=== PATIENT | male | born 1965 | race Caucasian/White ===

== ENCOUNTER → 2020-03-19 09:27 | Outpatient (BNVA) | payer OTHER, SELFPAY | PROVIDERS: PCP Internal Medicine; Visit Provider Physician Assistant | DX: E66.9 Obesity, unspecified (principal); Z68.43 Body mass index [BMI] 50.0-59.9, adult | CPT/HCPCS: Q3014 ==

== ENCOUNTER → 2020-03-26 10:49 | Outpatient (BNVA) | payer OTHER, SELFPAY | PROVIDERS: Visit Provider Physician Assistant | DX: Z76.89 Persons encountering health services in other specified circumstances (principal) ==

== ENCOUNTER → 2020-04-01 08:33 | Outpatient (BNVA) | payer OTHER, SELFPAY | PROVIDERS: PCP Internal Medicine; Visit Provider Dietitian, Registered | DX: Z76.89 Persons encountering health services in other specified circumstances (principal) ==

== ENCOUNTER → 2020-04-05 07:52 | Outpatient (BNVA) | payer OTHER, SELFPAY | PROVIDERS: PCP Internal Medicine Critical Care Medicine; Visit Provider Dietitian, Registered | DX: Z76.89 Persons encountering health services in other specified circumstances (principal) ==

== ENCOUNTER → 2020-04-11 09:48 | Outpatient (BNVA) | payer OTHER, SELFPAY | PROVIDERS: PCP Internal Medicine; Referring Provider Internal Medicine; Visit Provider Surgery | DX: Z76.89 Persons encountering health services in other specified circumstances (principal) ==

== ENCOUNTER → 2020-05-03 08:02 | Outpatient (BNVA) | payer OTHER, SELFPAY | PROVIDERS: PCP Obstetrics & Gynecology; Referring Provider Obstetrics & Gynecology; Visit Provider Physician Assistant | DX: Z76.89 Persons encountering health services in other specified circumstances (principal) ==

== ENCOUNTER → 2020-05-08 08:33 | Outpatient (BNVA) | payer OTHER, SELFPAY | PROVIDERS: PCP Obstetrics & Gynecology; Visit Provider Dietitian, Registered | DX: Z76.89 Persons encountering health services in other specified circumstances (principal) ==

== ENCOUNTER → 2020-10-01 15:45 | Outpatient (BNVA) | payer OTHER, SELFPAY | PROVIDERS: PCP Obstetrics & Gynecology; Visit Provider Physician Assistant ==

== ENCOUNTER → 2020-10-10 08:19 | Outpatient (BNVA) | payer OTHER, SELFPAY | PROVIDERS: PCP Internal Medicine; Visit Provider Dietitian, Registered | DX: E66.01 Morbid (severe) obesity due to excess calories (principal); Z68.43 Body mass index [BMI] 50.0-59.9, adult | CPT/HCPCS: 97803 ==

== ENCOUNTER → 2020-11-07 08:22 | Outpatient (BNVA) | payer OTHER, SELFPAY | PROVIDERS: PCP Internal Medicine; Visit Provider Dietitian, Registered ==

== ENCOUNTER → 2020-11-14 08:12 | Outpatient (BNVA) | payer OTHER, SELFPAY | PROVIDERS: PCP Internal Medicine; Visit Provider Dietitian, Registered | DX: E66.01 Morbid (severe) obesity due to excess calories (principal) | CPT/HCPCS: 97803 ==

== ENCOUNTER 2021-06-30 22:22 | Emergency (ER) | payer OTHER, SELFPAY ==
[2021-06-30 23:16] VITALS: BP 136/83; PULSE 98; RESP 20; TEMP 36.1; O2SAT 96; BMI 43.0
[2021-07-01 01:37] VITALS: BP 130/78; PULSE 99; RESP 18; O2SAT 96
[2021-07-01 02:10] LABS: Appearance Urine HAZY; Color Urine DK YELLOW; Glucose Urine UA NEG (NEG); Leukocyte Esterase Urine 1+ (NEG); Nitrite Urine POS (NEG); Specific Gravity - Urine >= 1.030 (1.005-1.025); UACC Culture Trigger YES; Urine Blood 3+ (NEG); Urine Ketones NEG (NEG); Urine Protein NEG (NEG-TRACE)
[2021-07-01 02:16] LABS: Bacteria Urine 4+ /LPF; Mucus Urine 2+ /LPF; Squamous Epithelial Cell Urine 1+ /LPF; WBC Clumps Urine NOTED; WBC Urine 50-75 /HPF (0-4)
--- NOTE | 2021-07-01 03:37 | ED.GENADULT ---
HPI - General Adult General Chief complaint: General Medical Stated complaint: burning on urination Time Seen by Provider: 06/30/21 22:38 History of Present Illness HPI narrative: Patient is a 56-year-old male presents today with having pain on urination. Feels that he is constantly going to the bathroom. Symptoms started approximately 18:00 tonight. No cough no congestion or upper respiratory symptoms. No history UTIs in the past. No nausea no vomiting. Tolerating fluids. No flank pain. Patient is from home. Sexually active 1 partner. He is . No penile discharge noted. No abdominal pain noted. Related Data Home Medications Medication Instructions Recorded Confirmed albuterol sulfate 90 mcg/actuation INHALATION 03/19/20 10/01/20 aerosol inhaler fluticasone propionate 110 2 puff PO BID 03/19/20 10/01/20 mcg/actuation HFA aerosol inhaler fluticasone propionate 50 1 spray INTRANASAL DAILY 03/19/20 10/01/20 mcg/actuation nasal spray,suspension hydrochlorothiazide 25 mg tablet 25 mg PO DAILY 03/19/20 10/01/20 lisinopril 40 mg tablet 40 mg PO DAILY 03/19/20 10/01/20 multivitamin with minerals-folic tab PO 03/19/20 10/01/20 acid 0.4 mg tablet (Adult One Daily Multivitamin) cetirizine 10 mg capsule (All Day 10 mg PO DAILY 04/11/20 10/01/20 Allergy (cetirizine)) amlodipine 5 mg tablet 10 mg PO DAILY tab 10/01/20 10/01/20 Previous Rx's Medication Instructions Recorded sulfamethoxazole 800 1 tab PO BID 10 Days #20 tab 07/01/21 mg-trimethoprim 160 mg tablet (Bactrim DS) Allergies Allergy/AdvReac Type Severity Reaction Status Date / Time Pt states no known allergy to Allergy Unknown none Uncoded 10/01/20 16:01 Review of Systems Review of Systems: No abdominal pain positive increasing frequency pain on urination Yes all other systems are reviewed and are negative PMFSH Past Medical History Medical History Arthritis of right hip Asthma BMI 50.0-59.9, adult Hypertension Morbid obesity Morbid obesity with BMI of 50.0-59.9, adult Super obesity Surgical History Status post right hip replacement Family History Family History Father No problems noted. Brother No problems noted. Brother No problems noted. Brother No problems noted. Brother No problems noted. Sister No problems noted. Sister No problems noted. Mother No problems noted. Social History Social History Alcohol intake: never Advance Directives: No Physical Exam Vital Signs: Vital Signs: Last Vital Signs Temp 97 F 06/30/21 23:16 Pulse 99 07/01/21 04:00 Resp 16 07/01/21 04:00 BP 134/83 07/01/21 04:00 Pulse Ox 98 07/01/21 04:00 BMI result Body Mass Index 43.0 Appearance: Alert. Oriented X3. No acute distress. Eyes: Pupils equal, round and reactive to light. ENT: Pharynx normal. Neck: Normal inspection. Neck supple. No lymph nodes noted. No crepitus CVS: Normal heart rate and rhythm. Pulses normal. Normal S1 and S2 Respiratory: No respiratory distress. Breath sounds normal. No Wheezing. No rales Abdomen: Soft and nontender. No rigidity. No distention. good BS x4 Skin: Skin warm and dry. Normal skin color. Normal skin turgor. Extremities: No lower extremity edema. Neurovascular intact to all extremities. No Lacerations. No Rash Neuro: Oriented X 3. No motor deficit. No sensory deficit. Moving all extermities. No slurred speech Medical Decision Making MDM Narrative Medical decision making narrative: Patient elevated white count of 19. Urine grossly infected electrolytes otherwise unremarkable. Lactate was normal. No evidence of severe sepsis. Will start patient on a dose of Rocephin here in emergency department. Postvoid residual was less than 100. Patient is to be discharged home on antibiotics. In stable condition. In addition patient's sugar was greater than 100. Will need close follow-up for possible diabetes. Patient is currently in stable condition. Lab Data Result diagrams: 07/01/21 04:09 07/01/21 04:09 Labs: Lab Results 01/18/22 01/18/22 01/18/22 Range/Units 02:03 04:09 04:09 WBC 19.0 H (4.8-10.8) X10*3/uL RBC 4.66 (4.60-5.80) X10*6/uL Hgb 14.4 (14.0-18.0) g/dl Hct 42.8 (42.0-52.0) % MCV 91.8 (80.0-98.0) fL MCH 30.9 (27.0-33.0) pg MCHC 33.6 (31.0-36.0) g/dl RDW 12.4 (11.0-16.0) % Plt Count 295 (160-400) X10*3/uL MPV 9.8 (9.4-12.4) fL Immature Gran % (Auto) 0.3 (0.0-0.4) % Neut % (Auto) 80.6 H (45-73) % Lymph % (Auto) 11.4 L (20-40) % [place] % (Auto) 7.2 (2-11) % Eos % (Auto) 0.2 (0-4) % Baso % (Auto) 0.3 (0-2) % Lymph # (Auto) 2.2 (1.2-4.9) X10*3/uL [place] # (Auto) 1.4 H (0.1-1.2) X10*3/uL Eos # (Auto) 0.0 (0.0-0.4) X10*3/uL Baso # (Auto) 0.1 (0.0-0.2) X10*3/uL Abs Immat Gran (auto) 0.05 H (0.00-0.03) X10*3/uL Absolute Neuts (auto) 15.3 H (2.0-8.3) x10*3/uL Absolute Nucleated RBC 0.000 (0.0-0.012) X10*3/uL Nucleated RBC % (auto) 0.0 (0.0-0.2) /100WBC Sodium 135 (135-145) mmol/L Potassium 4.1 (3.3-5.1) mmol/L Chloride 103 (96-108) mmol/L Carbon Dioxide 22 (22-29) mmol/L Anion Gap 14 (12-20) BUN 22 H (9-16) mg/dL Creatinine 0.84 (0.5-1.4) mg/dL Estim Creat Clear Calc 127.3 Estimated GFR > 60 Random Glucose 190 H (60-115) mg/dL Lactic Acid (0.5-2.0) mmol/L Calcium 9.2 (8.4-10.2) mg/dL Urine Color DK YELLOW Urine Appearance HAZY Urine pH 6.0 (5.0-8.0) Ur Specific [place] >= 1.030 H (1.005-1.025) Urine Protein NEG (NEG-TRACE) MG/DL Urine Glucose (UA) NEG (NEG) MG/DL Urine Ketones NEG (NEG) MG/DL Urine Blood 3+ H (NEG) Urine Nitrite POS H (NEG) Ur Leukocyte Esterase 1+ H (NEG) Urine RBC 1-4 (0) /HPF Urine WBC 50-75 H (0-4) /HPF Urine WBC Clumps NOTED Ur Squamous Epith Cells 1+ /LPF Urine Bacteria 4+ /LPF Urine Mucus 2+ /LPF COVID-19 (LUIS) (Negative) COVID-19 Clin Com 07/01/21 07/01/21 Range/Units 05:31 05:31 WBC (4.8-10.8) X10*3/uL RBC (4.60-5.80) X10*6/uL Hgb (14.0-18.0) g/dl Hct (42.0-52.0) % MCV (80.0-98.0) fL MCH (27.0-33.0) pg MCHC (31.0-36.0) g/dl RDW (11.0-16.0) % Plt Count (160-400) X10*3/uL MPV (9.4-12.4) fL Immature Gran % (Auto) (0.0-0.4) % Neut % (Auto) (45-73) % Lymph % (Auto) (20-40) % [place] % (Auto) (2-11) % Eos % (Auto) (0-4) % Baso % (Auto) (0-2) % Lymph # (Auto) (1.2-4.9) X10*3/uL [place] # (Auto) (0.1-1.2) X10*3/uL Eos # (Auto) (0.0-0.4) X10*3/uL Baso # (Auto) (0.0-0.2) X10*3/uL Abs Immat Gran (auto) (0.00-0.03) X10*3/uL Absolute Neuts (auto) (2.0-8.3) x10*3/uL Absolute Nucleated RBC (0.0-0.012) X10*3/uL Nucleated RBC % (auto) (0.0-0.2) /100WBC Sodium (135-145) mmol/L Potassium (3.3-5.1) mmol/L Chloride (96-108) mmol/L Carbon Dioxide (22-29) mmol/L Anion Gap (12-20) BUN (9-16) mg/dL Creatinine (0.5-1.4) mg/dL Estim Creat Clear Calc Estimated GFR Random Glucose (60-115) mg/dL Lactic Acid 1.4 (0.5-2.0) mmol/L Calcium (8.4-10.2) mg/dL Urine Color Urine Appearance Urine pH (5.0-8.0) Ur Specific [place] (1.005-1.025) Urine Protein (NEG-TRACE) MG/DL Urine Glucose (UA) (NEG) MG/DL Urine Ketones (NEG) MG/DL Urine Blood (NEG) Urine Nitrite (NEG) Ur Leukocyte Esterase (NEG) Urine RBC (0) /HPF Urine WBC (0-4) /HPF Urine WBC Clumps Ur Squamous Epith Cells /LPF Urine Bacteria /LPF Urine Mucus /LPF COVID-19 (LUIS) Negative (Negative) COVID-19 Clin Com See Note Discharge Plan Discharge Clinical Impression: Acute UTI Patient Disposition: Home, Self-Care Instructions: Urinary Tract Infection in Men (ED), Diabetes and Nutrition (ED) Prescriptions: New sulfamethoxazole-trimethoprim [Bactrim DS] 800-160 mg tablet 1 tab PO BID 10 Days Qty: 20 RF: 0 No Action lisinopril 40 mg tablet 40 mg PO DAILY RF: 0 hydrochlorothiazide 25 mg tablet 25 mg PO DAILY RF: 0 fluticasone propionate 50 mcg/actuation spray,suspension 1 spray intranasal DAILY RF: 0 Flovent HFA 110 mcg/actuation HFA aerosol inhaler 2 puff PO BID RF: 0 albuterol sulfate 90 mcg/actuation HFA aerosol inhaler inhalation RF: 0 Adult One Daily Multivitamin 0.4 mg tablet PO RF: 0 amlodipine 5 mg tablet 10 mg PO DAILY RF: 0 All Day Allergy (cetirizine) 10 mg capsule 10 mg PO DAILY RF: 0 Referrals: Shahid Shen MD [Primary Care Provider] - 2 days
[2021-07-01 04:00] VITALS: BP 134/83; PULSE 99; RESP 16; O2SAT 98
[2021-07-01 04:21] LABS: MANUAL DIFF FLAG NO
[2021-07-01 04:22] LABS: Basophils Absolute Auto 0.1 X10*3/uL (0.0-0.2); Basophils Percent Auto 0.3 % (0-2); Eosinophils Percent Auto 0.2 % (0-4); Hematocrit 42.8 % (42.0-52.0); Hemoglobin 14.4 g/dl (14.0-18.0); Imm Gran Abs Auto 0.05 X10*3/uL (0.00-0.03); Imm Gran Pct Auto 0.3 % (0.0-0.4); Lymphocytes Absolute Auto 2.2 X10*3/uL (1.2-4.9); Lymphocytes Percent Auto 11.4 % (20-40); Mean Corpuscular HGB Conc 33.6 g/dl (31.0-36.0); Mean Corpuscular Hemoglobin 30.9 pg (27.0-33.0); Mean Corpuscular Volume 91.8 fL (80.0-98.0); Mean Platelet Volume 9.8 fL (9.4-12.4); Monocytes Absolute Auto 1.4 X10*3/uL (0.1-1.2); Monocytes Percent Auto 7.2 % (2-11); Neutrophils Absolute Auto 15.3 x10*3/uL (2.0-8.3); Neutrophils Percent Auto 80.6 % (45-73); Platelet Count 295 X10*3/uL (160-400); Red Blood Count 4.66 X10*6/uL (4.60-5.80); Red Cell Distribution Width 12.4 % (11.0-16.0)
[2021-07-01 04:42] LABS: Anion Gap 14 (12-20); Blood Urea Nitrogen 22 mg/dL (9-16); Calcium 9.2 mg/dL (8.4-10.2); Carbon Dioxide 22 mmol/L (22-29); Chloride 103 mmol/L (96-108); Creatinine Clr Calc Pharmacy 127.3; Estimated Glomerular Filt Rate > 60; Glucose Random 190 mg/dL (60-115); Potassium 4.1 mmol/L (3.3-5.1); Sodium 135 mmol/L (135-145)
[2021-07-01 05:48] LABS: Lactic Acid 1.4 mmol/L (0.5-2.0)
[2021-07-01 05:51] LABS: COVID-19 Test Negative (Negative); IDNOW Serial# 9DD0AD1C
[2021-07-01] MEDS: cefTRIAXone sodium 1 GM in 0.9 % Sodium Chloride 50 ML IV (05:52)
[2021-07-01 05:56] LABS: CT PCR NOT DETECTED (Not Detect.); NG PCR NOT DETECTED (Not Detect.)
[2021-07-01 05:57] VITALS: BP 123/68; PULSE 98; RESP 16; O2SAT 95
== END 2021-07-01 06:11 | disposition home or self-care (01) ==
PROVIDERS: Nurse Practitioner Family; Emergency Provider Emergency Medicine Emergency Medical Services; PCP Internal Medicine
DX: N39.0 Urinary tract infection, site not specified (principal); Z20.822 Contact with and (suspected) exposure to COVID-19; I10 Essential (primary) hypertension; E66.01 Morbid (severe) obesity due to excess calories
CPT/HCPCS: 36415; 51798; 80048; 81001; 83605; 85025; 87040; 87086; 87088; 87186; 87491; 87591; 87635; 96372; 99284; J0696

== ENCOUNTER 2023-07-14 16:50 | Inpatient (IN) | payer OTHER, SELFPAY ==
--- NOTE | ~2023-07-14 | CT_ITS ---
EXAMINATION: CT ABDOMEN AND PELVIS WITHOUT CONTRAST CLINICAL INFORMATION: hematuria, abd pain. COMPARISON: No pertinent prior studies are available for comparison. TECHNIQUE: Multidetector volumetric imaging was performed from the superior aspect of the liver through the pubic symphysis without contrast per renal stone protocol. Sagittal and coronal reformatted images were obtained on the technologist workstation. This CT examination was performed using dose optimization techniques as appropriate, variously including the following: *Automated exposure control *Adjustment of mA and/or kV according to patient size (this includes techniques or standardized protocols for targeted exams where dose is matched to indication/reason for exam; i.e. extremities or head) *Use of iterative reconstruction technique DLP: 1220 mGy-cm. FINDINGS: LUNG BASES: Unremarkable LIVER, GALLBLADDER, BILIARY TREE: The non-contrast liver is normal in size, shape, and attenuation. No focal hepatic lesion or biliary ductal dilatation is present. The gallbladder is unremarkable with no evidence of radiopaque gallstones, gallbladder wall thickening, or obvious pericholecystic inflammatory changes. PANCREAS: Unremarkable. SPLEEN: Unremarkable. ADRENAL GLANDS: Unremarkable. KIDNEYS AND URETERS: The kidneys are normal in size, shape, and attenuation. No hydronephrosis, hydroureter, or perinephric stranding. No calculi. BLADDER: Decompressed but otherwise unremarkable GASTROINTESTINAL TRACT: Distal colon mostly decompressed. I do not appreciate any colonic wall thickening or pericolonic inflammatory change. Normal-appearing appendix in the right lower quadrant. Visualized small bowel unremarkable ABDOMINAL WALL: Tiny fat-containing periumbilical hernia LYMPHOVASCULAR STRUCTURES: Mild vascular calcification within the aorta iliac system. PELVIC VISCERA: Unremarkable. OSSEUS STRUCTURES: Patient is status post right total hip arthroplasty with associated atrophy of the right psoas muscle CT/CT abdomen pelvis wo IV con IMPRESSION: I do not appreciate any acute intra-abdominal process. No renal or ureteric calculi. No obstructive changes to the kidneys.
[2023-07-14 17:31] VITALS: BP 142/85; PULSE 110; RESP 18; TEMP 38.4; O2SAT 96; BMI 50.9
--- NOTE | 2023-07-14 17:37 | ED_ITS ---
HPI - Male Genitourinary General Chief complaint: Urogenital-Male Stated complaint: unable to urinate Time Seen by Provider: 07/14/23 18:30 Source: patient and family Mode of arrival: ambulatory Limitations: no limitations History of Present Illness HPI Narrative: 58-year-old male other past medical history of hypertension and kidney stones in the past presents to the emergency department, with family, for concerns for dysuria, increased urinary frequency and hesitancy starting this morning. He reports that he had an elevated temperature here in the emergency department of 101.5 and was given Tylenol. He denies any current abdominal pain, testicular discomfort, nausea, vomiting, noted hematuria, or foul-smelling urine Pertinent positives and negatives discussed in HPI Related Data Home Medications Medication Instructions Recorded Confirmed fluticasone propionate 50 1 spray intranasal DAILY 03/19/20 07/14/23 mcg/actuation nasal spray,suspension lisinopril 40 mg tablet 40 mg PO BEDTIME 03/19/20 07/14/23 amlodipine 5 mg tablet 10 mg PO BEDTIME 10/01/20 07/14/23 budesonide 90 mcg/actuation breath 2 inh inhalation BID PRN Shortness 07/14/23 07/14/23 activated powder inhaler Of Breath Or Wheezing (Pulmicort Flexhaler) multivitamin-ferrous 1 tab PO DAILY 07/14/23 07/14/23 fumarate-folic acid 18 mg-400 mcg tablet spironolactone 25 1 tab PO DAILY 07/14/23 07/14/23 mg-hydrochlorothiazide 25 mg tablet Allergies Allergy/AdvReac Type Severity Reaction Status Date / Time Pt states no known allergy to Allergy Unknown none Uncoded 07/15/23 02:23 Review of Systems 2 Review of Systems: Yes all other systems are reviewed and are negative [facility] Past Medical History Medical History BMI 50.0-59.9, adult Morbid obesity Morbid obesity with BMI of 50.0-59.9, adult Arthritis of right hip Asthma Hypertension Super obesity Surgical History Status post right hip replacement Family History Family History Father No problems noted. Brother No problems noted. Brother No problems noted. Brother No problems noted. Brother No problems noted. Sister No problems noted. Sister No problems noted. Mother No problems noted. Social History Social History Household Members: Spouse Housing: Apartment Do you presently have visiting nurse or other home services: No Alcohol intake: never Patient Tobacco Use Status: Never used Tobacco e-Cigarette/Vaping Use: Never Used service: No Physical Exam 2 Vital Signs: Vital Signs: Last Vital Signs Temp 99.5 F 07/15/23 08:24 Pulse 114 H 07/15/23 07:16 Resp 18 07/15/23 07:16 BP 155/88 H 07/15/23 07:16 Pulse Ox 98 07/15/23 07:16 O2 Del Method Room Air 07/15/23 07:16 BMI result Body Mass Index 50.9 Nursing notes and vital signs reviewed. GENERAL APPEARANCE: A&0 x 4, generally well appearing, no acute distress HENMT: Normal to inspection, atraumatic, face symmetrical. Normal external ears, nose, and oropharynx clear. EYE: PERRLA, EOM intact, structures appear normal NECK: Supple without lymphadenopathy. No stiffness or restricted ROM. CHEST: Normal to inspection HEART: Normal rate and regular rhythm, normal S1/S2, no M/R/G LUNGS: LS CTA, moving air well. Able to speak in complete sentences. No crackles, wheezes, or rhonchi auscultated ABDOMEN: Soft, nontender, nondistended. Normal bowel sounds noted BACK: No CVAT, no obvious deformity EXTREMITIES: Moving all extremities without difficulty. No cyanosis, clubbing, or edema. Normal capillary refill. NEUROLOGICAL: Alert and oriented, moving all 4 extremities with equal strength. CN not formally tested but appearing grossly intact. Observed to ambulate with normal gait. Cognition normal SKIN: Warm and dry without any lesions, rash, or visible sores PSYCH: Cooperative, normal affect, normal thought process Course Course Course Narrative: RME: 58 yold male presents to the ED for dysuria, increase urinary frequency, suprapubic pain since today. Patient denies any abdominal pain, flank pain, nausea, vomitting, penile discharge, penile lesions, or trauma. labs ordered. Medications Administered Generic Name Dose Route Start Last Admin Trade Name Freq PRN Reason Stop Dose Admin Acetaminophen 650 mg 07/14/23 22:20 07/15/23 07:26 Acetaminophen 325 Mg Tablet PO 650 mg Q6H PRN Administration Pain, Mild (Pain Scale 1-3) Amlodipine Besylate 10 mg 07/14/23 22:30 07/14/23 22:36 Amlodipine Besylate 10 Mg Tablet PO Not Given BEDTIME [facility] Protocol Enoxaparin Sodium 40 mg 07/14/23 22:30 07/14/23 22:36 Enoxaparin Sodium 40 Mg/0.4 Ml Syringe SUBCUT 40 mg Q24H DINORA Administration Fluticasone Propionate 1 spray 07/15/23 09:00 07/15/23 11:32 Fluticasone Propionate Nasal 16 Gm Mccleary NOSTRIL-B Not Given DAILY DINORA Hydrochlorothiazide 25 mg 07/15/23 09:00 07/15/23 08:16 Hydrochlorothiazide 25 Mg Tablet PO 25 mg DAILY DINORA Administration Lisinopril 40 mg 07/14/23 22:30 07/14/23 22:36 Lisinopril 40 Mg Tablet PO Not Given BEDTIME [facility] Protocol Multivitamins/Vitamin C 1 tab 07/15/23 09:00 07/15/23 08:15 Multivitamin Tablet PO 1 tab DAILY DINORA Administration Sodium Chloride 3 ml 07/15/23 00:00 07/15/23 07:28 0.9 % Sodium Chloride Flush 3 Ml Syringe IVFLUSH 3 ml QSHIFT DINORA Administration Spironolactone 25 mg 07/15/23 09:00 07/15/23 08:16 Spironolactone 25 Mg Tablet PO 25 mg DAILY DINORA Administration Discontinued Medications Generic Name Dose Route Start Last Admin Trade Name Donte PRN Reason Stop Dose Admin Acetaminophen 975 mg 07/14/23 17:39 07/14/23 18:50 Acetaminophen 325 Mg Tablet PO 07/14/23 17:40 975 mg ONCE ONE Administration Sodium Chloride 1,000 mls @ 999 mls/hr 07/14/23 19:30 07/14/23 22:30 Ns IV 07/14/23 20:30 Infused .Q1H1M DINORA Infusion Ceftriaxone Sodium 1 gm/ 50 mls @ 100 mls/hr 07/14/23 20:30 07/14/23 21:40 Sodium Chloride IV 07/14/23 20:59 Infused ONCE ONE Infusion Medical Decision Making Medical Decision Making [facility] Narrative: Old records reviewed for previous imaging, lab studies, ECGs, and notes and additional HPI obtained from patient's family. Patient was assessed the emergency department. Patient noted to be febrile at 1:01 a.m. 0.2 and Tylenol given in triage with reduction of temperature to 99.4. Patient is A&O x4, LS CTA, [place] x4 with good strength. Nasal serology was negative for COVID or flu. Significant leukocytosis noted with WBCs 23.2 and BUN mildly elevated at 21. Lactic acid level 1.1. A moderate amount occult blood, RBCs, and WBCs noted in patient's urine and ceftriaxone given in addition to a 1 L IV fluid bolus. CT scan was completed which showed no evidence of nephrolithiasis or hydronephrosis per my interpretation. Radiology report notes a tiny, fat containing periumbilical hernia, mild vascular calcification within the aortoiliac system, and now acute intra-abdominal processes noted. Patient's symptoms are consistent with urinary tract infection and patient rules in for septic criteria as he had a fever of 101.2 on arrival and is tachycardic. Blood cultures were drawn. Admission was discussed with patient based on patient's HPI, PE, and diagnostics and patient is in agreement with admission. Case was discussed with admitting provider, Dr Rouse, with plan for inpatient admission for further management of urosepsis. Differential Diagnosis Differential Diagnoses: The differential diagnosis associated with the presentation includes But not limited to UTI, cystitis, pyelonephritis, nephrolithiasis, sepsis, malignancy Lab Data 07/15/23 06:03 07/15/23 06:03 Labs: Lab Results 07/14/23 07/14/23 07/14/23 Range/Units 17:40 17:43 17:44 WBC 23.2 H (4.8-10.8) X10*3/uL RBC 4.91 (4.60-5.80) X10*6/uL Hgb 15.4 (14.0-18.0) g/dl Hct 44.2 (42.0-52.0) % MCV 90.0 (80.0-98.0) fL MCH 31.4 (27.0-33.0) pg MCHC 34.8 (31.0-36.0) g/dl RDW 11.9 (11.0-16.0) % Plt Count 322 (160-400) X10*3/uL MPV 9.4 (9.4-12.4) fL Immature Gran % (Auto) 0.4 (0.0-0.4) % Neut % (Auto) 84.1 H (45-73) % Lymph % (Auto) 9.0 L (20-40) % [place] % (Auto) 6.1 (2-11) % Eos % (Auto) 0.1 (0-4) % Baso % (Auto) 0.3 (0-2) % Lymph # (Auto) 2.1 (1.2-4.9) X10*3/uL [place] # (Auto) 1.4 H (0.1-1.2) X10*3/uL Eos # (Auto) 0.0 (0.0-0.4) X10*3/uL Baso # (Auto) 0.1 (0.0-0.2) X10*3/uL Abs Immat Gran (auto) 0.09 H (0.00-0.03) X10*3/uL Absolute Neuts (auto) 19.6 H (2.0-8.3) x10*3/uL Absolute Nucleated RBC 0.000 (0.0-0.012) X10*3/uL Nucleated RBC % (auto) 0.0 (0.0-0.2) /100WBC Sodium 138 (135-145) mmol/L Potassium 4.3 (3.3-5.1) mmol/L Chloride 102 (96-108) mmol/L Carbon Dioxide 26 (22-29) mmol/L Anion Gap 14 (12-20) BUN 21 H (9-16) mg/dL Creatinine 1.07 (0.5-1.4) mg/dL Estim Creat Clear Calc 107.5 Estimated GFR > 60 Random Glucose 144 H (60-115) mg/dL Lactic Acid 1.1 (0.5-2.0) mmol/L Calcium 9.6 (8.4-10.2) mg/dL Total Bilirubin 0.6 (0.0-1.0) mg/dL AST 33 (5-37) U/L ALT 32 (0-40) U/L Alkaline Phosphatase 58 (39-117) U/L Total Protein 7.6 (6.5-8.0) g/dL Albumin 4.2 (3.5-5.0) g/dL Lipase 28 (8-78) U/L Urine Color Yellow Urine Appearance Cloudy Urine pH 6.5 (5.0-9.0) Ur Specific [place] 1.025 (1.005-1.025) Urine Protein 30 (1+) H (Neg-Trace) mg/dL Urine Glucose (UA) Negative (Negative) mg/dL Urine Ketones Negative (Negative) mg/dL Urine Blood Moderate (2+) H (Negative) Urine Nitrite Negative (Negative) Ur Leukocyte Esterase Moderate (2+) H (Negative) Urine RBC >20 H (0-2) /HPF Urine WBC >50 H (0-5) /HPF Ur Squamous Epith Cells 0-2 (0-2) /HPF Urine Bacteria Trace (None Seen) Hyaline Casts 0-2 (0-2) /LPF COVID-19 (LUIS) Negative (Negative) COVID-19 Clin Com See Note Influenza Type A (JAIME) Negative (Negative) Influenza Type B (JAIME) Negative (Negative) Influenza A & B Note See Note Discharge Plan Discharge Clinical Impression: Urinary tract infection Patient Disposition: Admitted As Inpatient Interventions: Admission Worksheet (ED) Last Done: 07/15/23 01:32 Discharge Date/Time: 07/15/23 02:27
[2023-07-14 17:51] LABS: MANUAL DIFF FLAG NO
[2023-07-14 17:53] LABS: Basophils Absolute Auto 0.1 X10*3/uL (0.0-0.2); Basophils Percent Auto 0.3 % (0-2); Eosinophils Percent Auto 0.1 % (0-4); Hematocrit 44.2 % (42.0-52.0); Hemoglobin 15.4 g/dl (14.0-18.0); Imm Gran Abs Auto 0.09 X10*3/uL (0.00-0.03); Imm Gran Pct Auto 0.4 % (0.0-0.4); Lymphocytes Absolute Auto 2.1 X10*3/uL (1.2-4.9); Mean Corpuscular HGB Conc 34.8 g/dl (31.0-36.0); Mean Corpuscular Hemoglobin 31.4 pg (27.0-33.0); Mean Platelet Volume 9.4 fL (9.4-12.4); Monocytes Absolute Auto 1.4 X10*3/uL (0.1-1.2); Monocytes Percent Auto 6.1 % (2-11); Neutrophils Absolute Auto 19.6 x10*3/uL (2.0-8.3); Neutrophils Percent Auto 84.1 % (45-73); Platelet Count 322 X10*3/uL (160-400); Red Blood Count 4.91 X10*6/uL (4.60-5.80); Red Cell Distribution Width 11.9 % (11.0-16.0); White Blood Count 23.2 X10*3/uL (4.8-10.8)
[2023-07-14 17:57] LABS: Appearance Urine Cloudy; Color Urine Yellow; Glucose Urine UA Negative (Negative); Leukocyte Esterase Urine Moderate (2+) (Negative); Nitrite Urine Negative (Negative); PH 6.5 (5.0-9.0); Specific Gravity - Urine 1.025 (1.005-1.025); UMIC TRIGGER UACC YES; Urine Blood Moderate (2+) (Negative); Urine Ketones Negative (Negative); Urine Protein 30 (1+) mg/dL (Neg-Trace)
[2023-07-14 17:59] LABS: Bacteria Urine Trace (None Seen); Hyaline Casts Urine 0-2 /LPF (0-2); RBC Urine >20 /HPF (0-2); Squamous Epithelial Cell Urine 0-2 /HPF (0-2); UACC Culture Trigger YES; WBC Urine >50 /HPF (0-5)
[2023-07-14 18:02] LABS: Lactic Acid 1.1 mmol/L (0.5-2.0)
[2023-07-14 18:07] LABS: Alanine Aminotransferase 32 U/L (0-40); Albumin Level 4.2 g/dL (3.5-5.0); Alkaline Phosphatase 58 U/L (39-117); Anion Gap 14 (12-20); Aspartate Amino Transferase 33 U/L (5-37); Bilirubin Total 0.6 mg/dL (0.0-1.0); Blood Urea Nitrogen 21 mg/dL (9-16); Calcium 9.6 mg/dL (8.4-10.2); Carbon Dioxide 26 mmol/L (22-29); Chloride 102 mmol/L (96-108); Creatinine Clr Calc Pharmacy 107.5; Estimated Glomerular Filt Rate > 60; Glucose Random 144 mg/dL (60-115); Lipase 28 U/L (8-78); Potassium 4.3 mmol/L (3.3-5.1); Sodium 138 mmol/L (135-145); Total Protein 7.6 g/dL (6.5-8.0)
[2023-07-14 18:11] LABS: COVID-19 Test Negative (Negative); IDNOW Serial# 16C4AD1C; IDNOW Serial# 55D5AD1C; Influenza A Negative (Negative); Influenza B2 Negative (Negative)
[2023-07-14] MEDS: Acetaminophen 325 MG TABLET 975 MG PO (18:50)
[2023-07-14 18:52] VITALS: BP 124/75; PULSE 121; RESP 18; TEMP 37.9; O2SAT 98
[2023-07-14] MEDS: 0.9 % Sodium Chloride 1,000 ML 999 ML IV (20:59)
[2023-07-14 21:00] VITALS: TEMP 37.4
[2023-07-14] MEDS: cefTRIAXone sodium 1 GM in 0.9 % Sodium Chloride 50 ML IV (21:01)
--- NOTE | 2023-07-14 22:19 | PHA.MEDREC ---
Pharmacy Consult ? Medication Reconciliation Pharmacy has completed the medication reconciliation. pt was able to confirm medications without prompting. claim history used to confirm dosing of medications.
--- NOTE | 2023-07-14 22:23 | P.HPHOSP_ITS ---
History of Present Illness Date of Service: 07/14/23 Attending physician on admission: Manuela Rouse Chief Complaint: urinary frequency, chills 58-year-old male with history of asthma, hypertension, morbid obesity with BMI greater than 50 presented to the ED earlier today for evaluation of chills, increased urinary frequency, and urinary urgency ongoing since this morning. He did not take his temperature but reports feeling feverish. Denies any dysuria, abdominal pain, nausea, vomiting, hematuria, flank pain, cough, shortness of breath, lightheadedness, chest pain. On arrival, patient febrile to 101.2, tachycardic to 120. Vitals otherwise stable, no hypotension. Significant leukocytosis of 23.2. Renal function electrolyte levels normal. Urinalysis significant for 2+ leukocytes, negative nitrites, 2+ blood, positive urinary sediment, trace bacteria. Negative for COVID-19, influenza. CT abdomen/pelvis negative for any acute intra abdominal process. No obstructive changes the kidneys or perinephric stranding. In the ED, given 975 mg acetaminophen, 1 L IV NS, and 1 g IV ceftriaxone. Review of Systems 2 Review of Systems: General: No malaise, unintentional weight loss. +subjective fevers, chills HEENT: No blurred vision, diplopia. No sore throat, nasal congestion, rhinorrhea, sinus pain, ear pain Cardiovascular: No chest pain, palpitations, or leg edema Respiratory: No shortness of breath, wheezing, cough GI: No abdominal pain, nausea, vomiting, diarrhea, constipation, melena, hematochezia : +increased urinary frequency, +urgency. No dysuria, hematuria, decreased urinary output MSK: No myalgia, back pain Neuro: No headaches, weakness, paresthesias Skin: No rashes or lesions [facility] Medical History BMI 50.0-59.9, adult Morbid obesity Morbid obesity with BMI of 50.0-59.9, adult Arthritis of right hip Asthma Hypertension Super obesity Family History Father No problems noted. Brother No problems noted. Brother No problems noted. Brother No problems noted. Brother No problems noted. Sister No problems noted. Sister No problems noted. Mother No problems noted. Surgical History Status post right hip replacement Social History Alcohol intake: never Smoked in Last 30 Days: No Use of substances other than those prescribed or required for medical reasons: No Advance Directives: No Advance Directives Information Provided: No Meds Allergies Allergy/AdvReac Type Severity Reaction Status Date / Time Pt states no known allergy to Allergy Unknown none Uncoded 10/01/20 16:01 Active Medications: Current Medications Acetaminophen (Acetaminophen 325 Mg Tablet) 650 mg PO Q6H PRN PRN Reason: Pain, Mild (Pain Scale 1-3) Enoxaparin Sodium (Enoxaparin Sodium 40 Mg/0.4 Ml Syringe) 40 mg SUBCUT Q24H [facility] Ceftriaxone Sodium 1 gm/ (Sodium Chloride) 50 mls @ 100 mls/hr IV Q24H [facility] Ondansetron HCl (Ondansetron Hcl 4 Mg/2 Ml Vial) 4 mg IVPUSH Q8H PRN PRN Reason: Nausea and Vomiting Senna (Sennosides 8.6 Mg Tablet) 17.2 mg PO BEDTIME PRN PRN Reason: Constipation Sodium Chloride (0.9 % Sodium Chloride Flush 3 Ml Syringe) 3 ml IVFLUSH QSHIFT [facility] Home Medications Medication Instructions Recorded Confirmed Last Taken Type fluticasone propionate 50 1 spray intranasal DAILY 03/19/20 07/14/23 Unknown History mcg/actuation nasal spray,suspension lisinopril 40 mg tablet 40 mg PO BEDTIME 03/19/20 07/14/23 07/13/23 History amlodipine 5 mg tablet 10 mg PO BEDTIME 10/01/20 07/14/23 07/13/23 History budesonide 90 mcg/actuation breath 2 inh inhalation BID PRN Shortness 07/14/23 07/14/23 Unknown History activated powder inhaler Of Breath Or Wheezing (Pulmicort Flexhaler) multivitamin-ferrous 1 tab PO DAILY 07/14/23 07/14/23 07/14/23 History fumarate-folic acid 18 mg-400 mcg tablet spironolactone 25 1 tab PO DAILY 07/14/23 07/14/23 07/14/23 History mg-hydrochlorothiazide 25 mg tablet Physical Exam 2 Vital Signs and Narrative: Vital Signs: Last Vital Signs Temp 99.4 F 07/14/23 21:00 Pulse 121 H 07/14/23 18:52 Resp 18 07/14/23 18:52 BP 124/75 07/14/23 18:52 Pulse Ox 98 07/14/23 18:52 O2 Del Method Room Air 07/14/23 18:52 BMI result Body Mass Index 50.9 Constitutional - Awake and Alert, No apparent distress Eyes - PERRLA, EOMI Cardiovascular - S1S2, RRR, No edema Respiratory - Normal lung expansion, Normal respiratory effort, No respiratory distress, CTA bilaterally Gastrointestinal - NT / ND; +BS; No rebound or guarding Genitourinary-no CVA tenderness Extremities - no calf tenderness bilaterally, no swelling Skin - Warm/Dry Neurological - Alert & oriented x3 Psychological - Appropriate affect Results Labs 07/14/23 17:43 07/14/23 17:44 Labs: Laboratory Results - last 24 hr 07/14/23 07/14/23 07/14/23 17:40 17:43 17:44 MCV 90.0 MCH 31.4 MCHC 34.8 RDW 11.9 Plt Count 322 MPV 9.4 Immature Gran % (Auto) 0.4 Neut % (Auto) 84.1 H Lymph % (Auto) 9.0 L [place] % (Auto) 6.1 Eos % (Auto) 0.1 Baso % (Auto) 0.3 Lymph # (Auto) 2.1 [place] # (Auto) 1.4 H Eos # (Auto) 0.0 Baso # (Auto) 0.1 Abs Immat Gran (auto) 0.09 H Absolute Neuts (auto) 19.6 H Absolute Nucleated RBC 0.000 Nucleated RBC % (auto) 0.0 Anion Gap 14 Estim Creat Clear Calc 107.5 Estimated GFR > 60 Random Glucose 144 H Lactic Acid 1.1 Calcium 9.6 Total Bilirubin 0.6 AST 33 ALT 32 Alkaline Phosphatase 58 Total Protein 7.6 Albumin 4.2 Lipase 28 Urine Color Yellow Urine Appearance Cloudy Urine pH 6.5 Ur Specific [place] 1.025 Urine Protein 30 (1+) H Urine Glucose (UA) Negative Urine Ketones Negative Urine Blood Moderate (2+) H Urine Nitrite Negative Ur Leukocyte Esterase Moderate (2+) H Urine RBC >20 H Urine WBC >50 H Ur Squamous Epith Cells 0-2 Urine Bacteria Trace Hyaline Casts 0-2 COVID-19 (LUIS) Negative COVID-19 Clin Com See Note Influenza Type A (JAIME) Negative Influenza Type B (JAIME) Negative Influenza A & B Note See Note Imaging Radiologist's Impressions: Impressions Abdomen/Pelvis CT 07/14/23 20:12 IMPRESSION: I do not appreciate any acute intra-abdominal process. No renal or ureteric calculi. No obstructive changes to the kidneys. Assessment and Plan (1) UTI (urinary tract infection): Status: Acute (2) Sepsis: Status: Acute Plan 58-year-old male with history of asthma, hypertension, morbid obesity with BMI greater than 50 admitted for management of UTI with sepsis #UTi with sepsis -UA with 2+ leukocytes, negative nitrites, 2+ blood, positive urinary sediment, trace bacteria -leukocytosis of 23, tachycardic, febrile. No lactic acidosis/end-organ damage. No severe sepsis/shock -IV ceftriaxone (initiated 07/14) -follow CBC, cultures # mild intermittent asthma -continue home inhalers # hypertension -blood pressure reasonably controlled on admission -continue lisinopril, spironolactone, hydrochlorothiazide, amlodipine # morbid obesity with BMI greater than 50 -weight loss efforts encouraged DVT prophylaxis- Lovenox -full code Due to sepsis associated with urinary tract infection, patient will require inpatient stay at least 2 midnights for treatment with IV antibiotics Quality Stroke Does the patient have a stroke diagnosis?: No VTE Prior VTE?: No VTE Risk Level:: Medical - moderate - high VTE Device Contraindication: Treatment Not Indicated VTE Drug Contraindication: N/A - Med Ordered
[2023-07-14] MEDS: Enoxaparin Sodium 40 MG/0.4 ML SYRINGE SUBCUT (22:36)
[2023-07-14 23:44] VITALS: BP 112/61; PULSE 120; RESP 24; TEMP 38.8; O2SAT 95
--- NOTE | 2023-07-14 23:47 | MHC.EDTECH ---
This tech took over care of patient at 2330, hourly rounds and vitals completed,oral temp is elevated 101.9 and HR is 120, Ashleigh RN was made aware, Patient urinated 300MLS in urinal,belonging list completed and copy placed in chart, Call morales in reach and family at bedside
[2023-07-14] MEDS: Acetaminophen 325 MG TABLET 650 MG PO (23:56)
[2023-07-15] VITALS (7 sets, daily range): BP systolic 134–155; BP diastolic 65–89; PULSE 100–114; RESP 18–20; TEMP 36.3–39; O2SAT 95–98
--- NOTE | 2023-07-15 01:17 | MHC.EDTECH ---
Temp was re-checked 99.5,HR 108 RN Ashleigh is aware
[2023-07-15 06:14] LABS: MANUAL DIFF FLAG NO
[2023-07-15 06:26] LABS: Basophils Percent Auto 0.2 % (0-2); Eosinophils Percent Auto 0.1 % (0-4); Hematocrit 42.9 % (42.0-52.0); Hemoglobin 14.8 g/dl (14.0-18.0); Imm Gran Abs Auto 0.08 X10*3/uL (0.00-0.03); Imm Gran Pct Auto 0.4 % (0.0-0.4); Lymphocytes Absolute Auto 1.7 X10*3/uL (1.2-4.9); Lymphocytes Percent Auto 8.3 % (20-40); Mean Corpuscular HGB Conc 34.5 g/dl (31.0-36.0); Mean Corpuscular Hemoglobin 31.1 pg (27.0-33.0); Mean Corpuscular Volume 90.1 fL (80.0-98.0); Mean Platelet Volume 9.4 fL (9.4-12.4); Monocytes Absolute Auto 1.1 X10*3/uL (0.1-1.2); Monocytes Percent Auto 5.7 % (2-11); Neutrophils Percent Auto 85.3 % (45-73); Platelet Count 255 X10*3/uL (160-400); Red Blood Count 4.76 X10*6/uL (4.60-5.80); Red Cell Distribution Width 11.9 % (11.0-16.0); White Blood Count 19.9 X10*3/uL (4.8-10.8)
[2023-07-15 06:30] LABS: Anion Gap 11 (12-20); Blood Urea Nitrogen 15 mg/dL (9-16); Calcium 8.9 mg/dL (8.4-10.2); Carbon Dioxide 25 mmol/L (22-29); Chloride 103 mmol/L (96-108); Estimated Glomerular Filt Rate > 60; Glucose Random 140 mg/dL (60-115); Potassium 4.1 mmol/L (3.3-5.1); Sodium 135 mmol/L (135-145)
[2023-07-15] MEDS: Acetaminophen 325 MG TABLET 650 MG PO (07:26)
[2023-07-15] MEDS: 0.9 % Sodium Chloride Flush 3 ML SYRINGE IVFLUSH ×3 (07:28→22:20)
[2023-07-15] MEDS: Multivitamin TABLET 1 TAB PO (08:15)
[2023-07-15] MEDS: Spironolactone 25 MG TABLET PO (08:16)
[2023-07-15] MEDS: hydroCHLOROthiazide 25 MG TABLET PO (08:16)
--- NOTE | 2023-07-15 08:58 | P.PNIM_ITS ---
Subjective Subjective Date of Service: 07/15/23 Interval History: febrile this am, overall improved Physical Exam 2 Vital Signs: Vital Signs: Last Vital Signs Temp 99.5 F 07/15/23 08:24 Pulse 114 H 07/15/23 07:16 Resp 18 07/15/23 07:16 BP 155/88 H 07/15/23 07:16 Pulse Ox 98 07/15/23 07:16 O2 Del Method Room Air 07/15/23 07:16 BMI result Body Mass Index 50.9 General: AO X 3, no acute distress Resp: CTA bilateral, no accessory muscles used CVS: S1,S2,RRR GI: soft, non tender, non distended Neuro: motor grossly intact, alert Psych: appropriate affect, appropriate insight Objective Data Active Medications Acetaminophen (Acetaminophen 325 Mg Tablet) 650 mg PO Q6H PRN PRN Reason: Pain, Mild (Pain Scale 1-3) Last Admin: 07/15/23 07:26 Dose: 650 mg Documented By: LEIGH ANN Amlodipine Besylate (Amlodipine Besylate 10 Mg Tablet) 10 mg PO BEDTIME [facility]; Protocol Last Admin: 07/14/23 22:36 Dose: Not Given Documented By: LACHO Non-Admin Reason: Previously Administered Enoxaparin Sodium (Enoxaparin Sodium 40 Mg/0.4 Ml Syringe) 40 mg SUBCUT Q24H [facility] Last Admin: 07/14/23 22:36 Dose: 40 mg Documented By: LACHO Fluticasone Propionate (Fluticasone Propionate Nasal 16 Gm [place]) 1 spray NOSTRIL-B DAILY [facility] Hydrochlorothiazide (Hydrochlorothiazide 25 Mg Tablet) 25 mg PO DAILY [facility] Last Admin: 07/15/23 08:16 Dose: 25 mg Documented By: DAYANA Ceftriaxone Sodium 1 gm/ (Sodium Chloride) 50 mls @ 100 mls/hr IV Q24H [facility] Lisinopril (Lisinopril 40 Mg Tablet) 40 mg PO BEDTIME [facility]; Protocol Last Admin: 07/14/23 22:36 Dose: Not Given Documented By: LACHO Non-Admin Reason: Previously Administered Multivitamins/Vitamin C (Multivitamin Tablet) 1 tab PO DAILY [facility] Last Admin: 07/15/23 08:15 Dose: 1 tab Documented By: HO.S-KUBAS Non-Formulary Medication (Budesonide [Pulmicort Flexhaler]) 2 inhalation INHALE BID PRN PRN Reason: Shortness Of Breath Or Wheezing Ondansetron HCl (Ondansetron Hcl 4 Mg/2 Ml Vial) 4 mg IVPUSH Q8H PRN PRN Reason: Nausea and Vomiting Senna (Sennosides 8.6 Mg Tablet) 17.2 mg PO BEDTIME PRN PRN Reason: Constipation Sodium Chloride (0.9 % Sodium Chloride Flush 3 Ml Syringe) 3 ml IVFLUSH QSHIFT [facility] Last Admin: 07/15/23 07:28 Dose: 3 ml Documented By: LEIGH ANN Spironolactone (Spironolactone 25 Mg Tablet) 25 mg PO DAILY [facility] Last Admin: 07/15/23 08:16 Dose: 25 mg Documented By: DAYANA Labs 07/15/23 06:03 07/15/23 06:03 Labs: Laboratory Results - last 24 hr 07/14/23 07/14/23 07/14/23 17:40 17:43 17:44 MCV 90.0 MCH 31.4 MCHC 34.8 RDW 11.9 Plt Count 322 MPV 9.4 Immature Gran % (Auto) 0.4 Neut % (Auto) 84.1 H Lymph % (Auto) 9.0 L [place] % (Auto) 6.1 Eos % (Auto) 0.1 Baso % (Auto) 0.3 Lymph # (Auto) 2.1 [place] # (Auto) 1.4 H Eos # (Auto) 0.0 Baso # (Auto) 0.1 Abs Immat Gran (auto) 0.09 H Absolute Neuts (auto) 19.6 H Absolute Nucleated RBC 0.000 Nucleated RBC % (auto) 0.0 Anion Gap 14 Estim Creat Clear Calc 107.5 Estimated GFR > 60 Random Glucose 144 H Lactic Acid 1.1 Calcium 9.6 Total Bilirubin 0.6 AST 33 ALT 32 Alkaline Phosphatase 58 Total Protein 7.6 Albumin 4.2 Lipase 28 Urine Color Yellow Urine Appearance Cloudy Urine pH 6.5 Ur Specific [place] 1.025 Urine Protein 30 (1+) H Urine Glucose (UA) Negative Urine Ketones Negative Urine Blood Moderate (2+) H Urine Nitrite Negative Ur Leukocyte Esterase Moderate (2+) H Urine RBC >20 H Urine WBC >50 H Ur Squamous Epith Cells 0-2 Urine Bacteria Trace Hyaline Casts 0-2 COVID-19 (LUIS) Negative COVID-19 Clin Com See Note Influenza Type A (JAIME) Negative Influenza Type B (JAIME) Negative Influenza A & B Note See Note 07/15/23 06:03 MCV 90.1 MCH 31.1 MCHC 34.5 RDW 11.9 Plt Count 255 MPV 9.4 Immature Gran % (Auto) 0.4 Neut % (Auto) 85.3 H Lymph % (Auto) 8.3 L [place] % (Auto) 5.7 Eos % (Auto) 0.1 Baso % (Auto) 0.2 Lymph # (Auto) 1.7 [place] # (Auto) 1.1 Eos # (Auto) 0.0 Baso # (Auto) 0.0 Abs Immat Gran (auto) 0.08 H Absolute Neuts (auto) 17.0 H Absolute Nucleated RBC 0.000 Nucleated RBC % (auto) 0.0 Anion Gap 11 L Estim Creat Clear Calc 125.0 Estimated GFR > 60 Random Glucose 140 H Lactic Acid Calcium 8.9 D Total Bilirubin AST ALT Alkaline Phosphatase Total Protein Albumin Lipase Urine Color Urine Appearance Urine pH Ur Specific [place] Urine Protein Urine Glucose (UA) Urine Ketones Urine Blood Urine Nitrite Ur Leukocyte Esterase Urine RBC Urine WBC Ur Squamous Epith Cells Urine Bacteria Hyaline Casts COVID-19 (LUIS) COVID-19 Clin Com Influenza Type A (JAIME) Influenza Type B (JAIME) Influenza A & B Note Assessment and Plan (1) Urinary tract infection: Status: Acute Plan 58M PMH mild intermittent asthma, htn, morbid obesity presented with fevers, dysuria sepsis due to uti rocpehin, follow up cultures mild intermitent asthma stable htn lisinopril, aldactone, hctz, amlodipine morbid obesity wegiht loss dvt prophylaxis - lovenox full code reason for continued hospitalization:awaiting defervesence and cultures Quality Stroke Does the patient have a stroke diagnosis?: No VTE Prior VTE?: No VTE Risk Level:: Medical - moderate - high VTE Device Contraindication: Treatment Not Indicated VTE Drug Contraindication: N/A - Med Ordered
--- NOTE | 2023-07-15 12:49 | MHC.CM.PN ---
MALE 58 DX UTI Sepsis Patient was here in ER with UTI recently. He lives with his . He is independent with all functional mobility. A copy of his HCP has been requested. Patient is open to VNA if needed. DP Home self care vs VNA. Patients will provide transportation home.
[2023-07-15] MEDS: cefTRIAXone sodium 1 GM in 0.9 % Sodium Chloride 50 ML IV (22:19)
[2023-07-15] MEDS: Enoxaparin Sodium 40 MG/0.4 ML SYRINGE SUBCUT (22:20)
[2023-07-15] MEDS: amLODIPine Besylate 10 MG TABLET PO (22:20)
[2023-07-15] MEDS: lisinopriL 40 MG TABLET PO (22:20)
[2023-07-16 03:05] VITALS: BP 131/64; PULSE 110; RESP 18; TEMP 36.7; O2SAT 96
[2023-07-16 05:29] LABS: Hematocrit 41.6 % (42.0-52.0); Hemoglobin 14.3 g/dl (14.0-18.0); Mean Corpuscular HGB Conc 34.4 g/dl (31.0-36.0); Mean Corpuscular Hemoglobin 31.2 pg (27.0-33.0); Mean Corpuscular Volume 90.6 fL (80.0-98.0); Mean Platelet Volume 9.6 fL (9.4-12.4); Platelet Count 233 X10*3/uL (160-400); Red Blood Count 4.59 X10*6/uL (4.60-5.80); Red Cell Distribution Width 12.2 % (11.0-16.0); White Blood Count 21.8 X10*3/uL (4.8-10.8)
[2023-07-16 05:46] LABS: Anion Gap 10 (12-20); Blood Urea Nitrogen 14 mg/dL (9-16); Carbon Dioxide 27 mmol/L (22-29); Chloride 101 mmol/L (96-108); Creatinine Clr Calc Pharmacy 130.7; Estimated Glomerular Filt Rate > 60; Glucose Fasting 140 mg/dL (60-99); Potassium 4.1 mmol/L (3.3-5.1); Sodium 134 mmol/L (135-145)
[2023-07-16 07:07] VITALS: BP 134/79; PULSE 99; RESP 16; TEMP 37.3; O2SAT 95
--- NOTE | 2023-07-16 08:33 | PM.DS ---
DS: Providers Provider Date of Service: 07/16/23 Date of admission: 07/14/23 22:20 Primary care physician: Shahid Shen III, MD DS: Diagnosis Discharge Diagnosis (1) Urinary tract infection: Status: Acute DS: Summary Hospital Course Hospital Course: from initial hpi: 58-year-old male with history of asthma, hypertension, morbid obesity with BMI greater than 50 presented to the ED earlier today for evaluation of chills, increased urinary frequency, and urinary urgency ongoing since this morning. He did not take his temperature but reports feeling feverish. Denies any dysuria, abdominal pain, nausea, vomiting, hematuria, flank pain, cough, shortness of breath, lightheadedness, chest pain. On arrival, patient febrile to 101.2, tachycardic to 120. Vitals otherwise stable, no hypotension. Significant leukocytosis of 23.2. Renal function electrolyte levels normal. Urinalysis significant for 2+ leukocytes, negative nitrites, 2+ blood, positive urinary sediment, trace bacteria. Negative for COVID-19, influenza. CT abdomen/pelvis negative for any acute intra abdominal process. No obstructive changes the kidneys or perinephric stranding. In the ED, given 975 mg acetaminophen, 1 L IV NS, and 1 g IV ceftriaxone. hospital course: Patient was admitted for sepsis due to urinary tract infection. He was treated with IV ceftriaxone and urine culture grew Klebsiella. Blood culture was negative. On discharge will continue 7 more days of cefuroxime. He was noted to have leukocytosis, low 20,000s, he should repeat CBC in about 1 week to confirm resolution. For mild intermittent asthma he remained stable. For hypertension was continued on lisinopril, Aldactone, HCTZ, amlodipine. For morbid obesity weight loss is recommended. Patient is feeling much better will be discharged home. Time Attestation Discharge coordination time: Greater than 30 minutes Quality: Safe Use of Opioids Does Pt have an Active Cancer Diagnosis on the Problem List?: No Quality: Stroke Does the patient have a stroke diagnosis?: No Physical Exam Vital Signs: Vital Signs: Last Vital Signs Temp 99.2 F 07/16/23 07:07 Pulse 99 07/16/23 07:07 Resp 16 07/16/23 07:07 BP 134/79 07/16/23 07:07 Pulse Ox 95 07/16/23 07:07 O2 Del Method Room Air 07/16/23 07:07 BMI result Body Mass Index 50.9 General: AO X 3, no acute distress Resp: CTA bilateral, no accessory muscles used CVS: S1,S2,RRR GI: soft, non tender, non distended Neuro: motor grossly intact, alert Psych: appropriate affect, appropriate insight DS: Data Data Completed and Pending Labs on day of discharge: Laboratory Results - last 24 hr 07/16/23 04:52 WBC 21.8 H RBC 4.59 L Hgb 14.3 Hct 41.6 L MCV 90.6 MCH 31.2 MCHC 34.4 RDW 12.2 Plt Count 233 MPV 9.6 Absolute Nucleated RBC 0.000 Nucleated RBC % (auto) 0.0 Sodium 134 L Potassium 4.1 Chloride 101 Carbon Dioxide 27 Anion Gap 10 L BUN 14 Creatinine 0.88 Estim Creat Clear Calc 130.7 Estimated GFR > 60 Fasting Glucose 140 H Calcium 9.0 Preliminary micro results at discharge 07/14/23 19:13 Blood Culture - Preliminary Blood - Venous No growth after 24 hours. 07/14/23 17:44 Blood Culture - Preliminary Blood - Venous No growth after 24 hours. Discharge Plan Discharge Anticipated Discharge Date/Time: 07/16/23 08:31 Patient Disposition: Home, Self-Care Discharge Diagnosis: sepsis uti, leukocytosis Referrals: Shahid Shen III, MD [Primary Care Provider] - 1 Week Discharge Medications: New cefuroxime axetil 500 mg tablet 500 mg PO BID Qty: 14 0RF Continued spironolacton-hydrochlorothiaz 25-25 mg tablet 1 tab PO DAILY Pulmicort Flexhaler 90 mcg/actuation aerosol powdr breath activated 2 inh inhalation BID PRN (Reason: Shortness Of Breath Or Wheezing) [id number] acid 18-400 mg-mcg Tablet 1 tab PO DAILY lisinopril 40 mg tablet 40 mg PO BEDTIME fluticasone propionate 50 mcg/actuation spray,suspension 1 spray intranasal DAILY amlodipine 5 mg tablet 10 mg PO BEDTIME Discharge Orders: Discharge Order (Routine); Ordered 07/16/23 Ordered By: Aquiles Pierce Diet: Advance to usual diet Activity on Discharge: As tolerated Stand Alone Forms: Patient Portal Discharge page Other Ambulatory Orders: Complete Blood Count Auto Diff (Routine) Timeframe: 1 Week Facility: [facility] - Location: Laboratory Ordered By: Aquiles Pierce Care Plan Goals: recovery Health Concerns: uti, elevated wbcs Plan of Treatment: 7 more days ceftin. recheck cbc in about 1 week to confirm wbcs back to normal Assessment: see above
[2023-07-16] MEDS: hydroCHLOROthiazide 25 MG TABLET PO (08:44)
[2023-07-16] MEDS: Spironolactone 25 MG TABLET PO (08:45)
[2023-07-16] MEDS: Multivitamin TABLET 1 TAB PO (08:45)
[2023-07-16] MEDS: 0.9 % Sodium Chloride Flush 3 ML SYRINGE IVFLUSH (08:45)
--- NOTE | 2023-07-16 08:47 | MHC.CM.PN ---
Patient is discharged today to home self care. He has arranged for his to provide transportation home.
== END 2023-07-16 12:26 | disposition home or self-care (01) | DRG 720 ==
LOC: HO.ED 19:48 → HO.EDOVER 22:25 → HO.S3 07-15 00:32
PROVIDERS: Physician Assistant; Admitting Provider Physician Assistant; Emergency Provider Emergency Medicine; PCP Internal Medicine; Visit Provider Internal Medicine
DX: A41.9 Sepsis, unspecified organism (principal); Z68.43 Body mass index [BMI] 50.0-59.9, adult; I10 Essential (primary) hypertension; E66.01 Morbid (severe) obesity due to excess calories; B96.1 Klebsiella pneumoniae [K. pneumoniae] as the cause of diseases classified elsewhere; J45.20 Mild intermittent asthma, uncomplicated; N39.0 Urinary tract infection, site not specified; Z20.822 Contact with and (suspected) exposure to COVID-19; Z79.51 Long term (current) use of inhaled steroids; Z79.899 Other long term (current) drug therapy
CPT/HCPCS: 36415; 74176; 80048; 80053; 81001; 83605; 83690; 85025; 85027; 87040; 87086; 87088; 87186; 87502; 87635; 99221; 99285; J0696; J1650

== ENCOUNTER → 2023-07-14 22:20 | Outpatient (BNV) | payer OTHER, SELFPAY | PROVIDERS: Admitting Provider Physician Assistant; Emergency Provider Emergency Medicine; PCP Internal Medicine; Visit Provider Physician Assistant | DX: A41.9 Sepsis, unspecified organism (principal); N39.0 Urinary tract infection, site not specified; E66.01 Morbid (severe) obesity due to excess calories | CPT/HCPCS: 99223; 99233; 99239 ==

== ENCOUNTER 2024-05-24 09:32 | Outpatient (AMB) | payer OTHER, SELFPAY ==
[2024-05-24 10:02] VITALS: BP 142/90; PULSE 111; TEMP 36.1; O2SAT 96; BMI 49.4
--- NOTE | 2024-05-24 10:02 | MHC.OFFWIV ---
Intake Vital Signs 05/24/24 10:02 Height 5 ft 7 in Weight 315 lb 4 oz BMI 49.4 BP 142/90 H Blood Pressure Location Lt brachial Position Sitting Pulse 111 H Pulse Source Pulse Oximeter Temp 97.0 F Temp Source Temporal Artery Scan Pulse Oximetry (%) 96 Oxygen Delivery Method Room Air Intake Visit Reasons: EP Throat, ears, congestion Intake Note: Pt presents to the office today for c/o congestion, cough, and itching ears x3 days. Patient Tobacco Use Status: Never used Tobacco Allergies Pt states no known allergy to Allergy (Unknown, Uncoded 05/24/24 10:04) none HPI EP Throat, ears, congestion HPI Details This note is constructed using voice recognition software. While every effort has been made to ensure accuracy, track repair person errors may have been included. The patient is a 59 year old male who presents to the clinic today with left more than right ear pain, sore throat, congestion, body aches for the past 2 days. He reports some difficulty hearing in the left ear, no fever no chills, no shortness of breath, no cough. [facility] Medical History BMI 50.0-59.9, adult Morbid obesity Morbid obesity with BMI of 50.0-59.9, adult Arthritis of right hip Asthma Hypertension Super obesity Surgical History Status post right hip replacement Family History Father No problems noted. Brother No problems noted. Brother No problems noted. Brother No problems noted. Brother No problems noted. Sister No problems noted. Sister No problems noted. Mother No problems noted. Social History Household Members: Spouse Housing: Apartment Do you presently have visiting nurse or other home services: No Alcohol intake: never Patient Tobacco Use Status: Never used Tobacco e-Cigarette/Vaping Use: Never Used service: No Review of Systems Const All systems reviewed & are unremarkable except as noted in HPI and below Physical Exam Vital Signs: Last Vital Signs Temp 97.0 F 05/24/24 10:02 Pulse 111 H 05/24/24 10:02 BP 142/90 H 05/24/24 10:02 Pulse Ox 96 05/24/24 10:02 Oxygen Delivery Method Room Air 05/24/24 10:02 BMI result Body Mass Index 49.4 Const General: cooperative, healthy appearing, comfortable and no acute distress Orientation/consciousness: patient oriented x3 Limitations: no limitations HEENT Head: Yes normal to inspection Ears: hearing grossly normal bilaterally, external ears normal, TM normal on the right and TM abnormal (On the right) erythematous and perforated General nose exam: Normal external nose present, Normal nares present and No nasal discharge present Face and sinus: Yes normal facial exam and Yes sinuses nontender Mouth: Normal oral and palatal mucosa present and moist mucous membranes Throat: Yes tonsils normal, Yes uvula midline and Yes posterior oropharynx abnormal (Erythema) Eyes General: appearance normal, both eyes and all related structures Neck Neck: Yes normal visual inspection Resp Effort & Inspection: normal respiratory effort, able to speak in complete sentences, Actively coughing, no respiratory distress, not tachypneic, no tripod positioning and no use of accessory muscles Auscultation: clear to auscultation bilaterally Cardio Jugular venous distension: no JVD Rate: regular rate Rhythm: regular rhythm Heart sounds: S1 normal heart sound present, S2 normal heart sound present, no click, no gallops, no murmurs and no rubs Skin General skin exam: no rashes or lesions noted, elasticity normal and turgor normal Neuro General: patient oriented x3 Extrem General: Yes normal to inspection and Yes no clubbing, cyanosis or edema Assessment & Plan Assessment & Plan (1) Otitis media: Code(s): H66.90 - Otitis media, unspecified, unspecified ear Qualifiers: Otitis media type: suppurative Chronicity: acute Laterality: left Recurrence: non-recurrent Spontaneous tympanic membrane rupture: with spontaneous rupture Qualified Code(s): H66.012 - Acute suppurative otitis media with spontaneous rupture of ear drum, left ear Plan: Supportive measures encouraged and reviewed. Antibiotic sent to requested pharmacy, advised patient to take antibiotics until completed and not to stop if feeling better, unless the patient has side effects. Advised patient to follow up with primary care provider with worsening or failure to resolve. Additionally, Viral swab obtained to rule out Covid, Influenza, and RSV based on symptoms. Advised mask wearing while symptomatic and quarantine per current CDC guidelines. Reviewed at home support methods including hydration, humidification, vix vapor rub, sinus rinse, and otc treatment options. Discussed treatment with antiviral therapy for covid with paxlovid and with Tamiflu for influenza, including appropriate use and side effects, and need to start medication within 5 day of symptom onset, preferably within 48 hours of symptom onset. Patient wishes to decline paxlovid. Advised follow up with worsening symptoms such as dyspnea at rest, which would require emergent evaluation. Plan See above for full details and plan. Orders: Orders SARS-CoV2/FLU/RSV Today J06.9 - Acute upper respiratory infection, unspecified Medications: New amoxicillin-pot clavulanate 875-125 mg 1 tab PO BID 7 days 14 tabs 0RF Coding Level of Care Code Est Pt Level 3 (40304) Diagnoses Non-recurrent acute suppurative otitis media of left ear with spontaneous rupture of tympanic membrane H66.012 Otitis media type: suppurative Chronicity: acute Laterality: left Recurrence: non-recurrent Spontaneous tympanic membrane rupture: with spontaneous rupture
--- OUTSIDE RECORDS SUMMARY | 2024-05-24 23:50 | XMS_ITS | Continuity of Care Document ---
Author Organization [facility] Address [address] [place] [address] [address] [place] [address] Phone Care Team Providers Care Manager Organizational Name Role Phone Luis WU, MEERA, Thony HA Unavailable U navailable Procedures Procedure Date Offic Cons New/estab Mod 40 Mi- CT & [place] Duplex Scan-extrem Veins; Comp- CT & [place] Advance Directives Directive Yes / No Effective Date File Name No Information Encounters Encounter Description Practice Location Reason(s) For Visit Diagnoses Date Provider Providers Copied on Encounter [facility], [address] [place] [address] [address], [id number], [place] tel:[phone] [facility] No Information 4 Luis WU RVT, RPVI Robert. [address] [facility], [facility] [address], [place], [place], [id number] , [place]. tel:[phone] Offic Cons New/estab Mod 40 Mi- CT & [place] [facility], [address] [place] [address] [address], [id number], [place] tel:[phone] [facility] Chronic venous hypertension (idiopathic) without complications of bilateral lower extremityType 2 diabetes mellitus without complicationsRe stless legs syndromeLymphed yvonne, not elsewhere classifiedPruri tus, unspecifiedPain in left legHereditary lymphedemaCramp and spasmLocalized edema 4 Luis WU RVT, RPVI Thony. [address] [facility], [address], [place], [place], [id number] , [place]. [phone] [facility], [address] [facility] [address], [place], [id number], [place] tel:[phone] [facility] Varicose veins of bilateral lower extremities with pain 4 Luis WU RVT, LELAND Bhandari. [address] [facility], [address], [facility] [place] [place], [id number] , [place]. [phone] Referring Provider: Thony Smith MD, RVT, LELAND, [address] [address], [place], [address] . tel:[phone] Family History Family Member Type Diagnosis Age At Onset No Information Payers Payer name Insurance type Covered libertarian ID [facility] [id number] Social History Type Description Quantity Date Captured Comments Sex Male Smoking Status No Information Chief Complaint And Reason For Visit No Information Reason For Referral Reason For Referral No Information Plan Of Treatment Date Type Action Status Goal Diet education completed Referral Ordered: Weight management: Referral to physician timeframe: 3 Months (related to Body mass index (BMI) 45.0-49.9, adult) ordered Appointment Stephen Reyes BOOKED Appointment Stephen Reyes BOOKED Appointment Stephen Reyes BOOKED Appointment Stephen Reyes BOOKED Appointment Stephen Reyes BOOKED Appointment Stephen Reyes BOOKED Appointment Stephen Reyes BOOKED Appointment Stephen Reyes BOOKED Appointment Stephen Reyes BOOKED Appointment Stephen Reyes BOOKED Appointment Stephen Reyes BOOKED History Of Present Illness Encounter Date Complaint History Of Prese nt Illness No Information Functional Status Date Functional Assessmen t No Information Instructions Date Instruction Additional Infor anita Pre and post instruc tions reviewed and provided Related to Chronic venous hypertension (idiopathic) without complications of bilateral lower extremity Diet education Related to Body mass index (BMI) 45.0-49.9, adult Giving Encouragement to exercise Related to Body mass index (BMI) 45.0-49.9, adult Lifestyle education Related to B sabrina mass index (BMI) 45.0-49.9, adult Patient education booklet given Related to Chronic venous hypertension (idiopathic) without complications of bilateral lower extremity Assessments Type Assessment Date No Information Patient Care Teams Name Effective Dates (start - stop) Status Members No Information
== END 2024-05-24 10:42 | disposition home or self-care (01) ==
PROVIDERS: PCP Internal Medicine; Visit Provider Registered Nurse
DX: H66.012 Acute suppurative otitis media with spontaneous rupture of ear drum, left ear (principal)

== ENCOUNTER 2024-05-24 09:32 | Outpatient (REF) | payer OTHER, SELFPAY ==
[2024-05-24 14:17] LABS: Influenza A PCR NEGATIVE (Negative); Influenza B PCR NEGATIVE (Negative); Resp Syncy Virus RNA Qual PCR NEGATIVE (Negative); SARS COV2 PCR INHOUSE POSITIVE (Negative)
--- OUTSIDE RECORDS SUMMARY | 2024-05-25 00:20 | XMS_ITS | Continuity of Care Document ---
Author Organization [facility] Address [address] [place] [address] [address] [place] [address] Phone Care Team Providers Care Construction Manager Name Role Phone Luis WU, MEERA, Thony HA Unavailable U navailable Procedures Procedure Date Offic Cons New/estab Mod 40 Mi- CT & [place] Duplex Scan-extrem Veins; Comp- CT & [place] Advance Directives Directive Yes / No Effective Date File Name No Information Encounters Encounter Description Practice Location Reason(s) For Visit Diagnoses Date Provider Providers Copied on Encounter [facility], [address] [place] [address] [address], [id number], [place] tel:[phone] [facility] No Information 4 Luis WU RVT, RPVI Robert. [address] [facility], [facility] [address], [place], [place], [id number] , [place]. tel:[phone] Offic Cons New/estab Mod 40 Mi- CT & [place] [facility], [address] [place] [address] [address], [id number], [place] tel:[phone] [facility] Chronic venous hypertension (idiopathic) without complications of bilateral lower extremityType 2 diabetes mellitus without complicationsRe stless legs syndromeLymphed yvonne, not elsewhere classifiedPruri tus, unspecifiedPain in left legHereditary lymphedemaCramp and spasmLocalized edema 4 Luis WU RVT, RPVI Thony. [address] [facility], [address], [place], [place], [id number] , [place]. [phone] [facility], [address] [facility] [address], [place], [id number], [place] tel:[phone] [facility] Varicose veins of bilateral lower extremities with pain 4 Luis WU RVT, LELAND Bhandari. [address] [facility], [address], [facility] [place], [place], [id number] , [place]. [phone] Referring Provider: Thony Smith MD, RVT, LELAND, [address] [address], [facility] [place], [address] . tel:[phone] Family History Family Member Type Diagnosis Age At Onset No Information Payers Payer name Insurance type Covered libertarian ID [facility] [id number] Social History Type Description Quantity Date Captured [...]
== END 2024-05-24 09:33 | disposition home or self-care (01) ==
LOC: HO.LAB 09:32
PROVIDERS: PCP Internal Medicine; Visit Provider Registered Nurse
DX: J06.9 Acute upper respiratory infection, unspecified (principal); H66.012 Acute suppurative otitis media with spontaneous rupture of ear drum, left ear
CPT/HCPCS: 0241U

== ENCOUNTER 2024-08-23 09:22 | Outpatient (REF) | payer OTHER, SELFPAY ==
--- OUTSIDE RECORDS SUMMARY | 2024-08-23 10:52 | XMS_ITS | Encounter Summary ---
Author Organization [facility] Address [address] [place] [address] Care Team Providers Care Cellar Supervisor Name Role Phone Shahid Shen MD Primary Care Provider [phone] Reason for Visit * Reason Onset Date Comments REFERRAL 11/23/2014 Encounter Details Date Type Department Care Team Description 11/23/2014 Telephone Adult Medicine [address] [phone] Shahid Shen MD [address] [place] [address] [phone] REFERRAL Social History Tobacco Use Types Packs/Day Years Used Date Smoking Tobacco: Never Alcohol Use Standard Drinks/Week Comments Not Asked 0 (1 standard drink = 0.6 oz pur e alcohol) Sex Assigned at Date Recorded Not on file Job Start Date Occupation Industry Not on file Not on file Not on file documented as of this encounter Miscellaneous Notes * Telephone Encounter - Tiffany So - 11/23/2014 9:56 AM EDT Pt was put on the hypertension clinic referrals report for: uncontrollable hypertension. Priority: Next Available; Pt was booked for 11/16/14 and NS'd appt. Calls have been made to pt to tryto reschedule; pt has not responded. documented in this encounter Plan of Treatment Not on file documented as of this encounter Visit Diagnoses Not on filedocumented in this encounter Care Teams Cellar Supervisor Relationship Specialty Start Date End Date Shahid Shen MD [address] [place] [phone] PCP - General Internal Medicine 08/14/13 documented as of this encounter
--- OUTSIDE RECORDS SUMMARY | 2024-08-23 10:52 | XMS_ITS | Encounter Summary ---
Author Organization [facility] Address [address] [place] [address] Care Team Providers Care Heavy Antiarmor Weapons Infantryman Name Role Phone Shahid Shen MD Primary Care Provider [phone] Encounter Details Date Type Department Care Team Description 08/29/2018 Orders Only Medical Records [address] [place] [phone] Mitch Bingham MD [address] [place] [phone] Social History Tobacco Use Types Packs/Day Years Used Date Smoking Tobacco: Never Smokeless Tobacco: Never Alcohol Use Standard Drinks/Week Comments Not Asked 0 (1 standard drink = 0.6 oz pur e alcohol) Sex Assigned at Date Recorded Not on file Job Start Date Occupation Industry Not on file Not on file Not on file documented as of this encounter Plan of Treatment Not on file documented as of this encounter Procedures Procedure Name Priority Date/Time Associated Diagnosis Comments OUTSIDE PATHOLOGY Routine 08/23/2018 documented in this encounter Results * OUTSIDE PATHOLOGY (08/23/2018) Mitch Bingham MD OUTSIDE LAB documented in this encounter Visit Diagnoses Not on filedocumented in this encounter Care Teams Heavy Antiarmor Weapons Infantryman Relationship Specialty Start Date End Date Shahid Sehn MD [address] [place] [phone] PCP - General Internal Medicine 08/14/13 documented as of this encounter
--- OUTSIDE RECORDS SUMMARY | 2024-08-23 10:52 | XMS_ITS | Encounter Summary ---
Author Organization [facility] Address [address] [place] [address] Care Team Providers Care Federal District Law Clerk Name Role Phone Shahid Shen MD Primary Care Provider [phone] Reason for Visit * Reason Comments Encounter Details Date Type Department Care Team Description 03/31/2016 Telephone Adult Medicine [address] [phone] Priti Bright PA Social History Tobacco Use Types Packs/Day Years Used Date Smoking Tobacco: Never Alcohol Use Standard Drinks/Week Comments Not Asked 0 (1 standard drink = 0.6 oz pur e alcohol) Sex Assigned at Date Recorded Not on file Job Start Date Occupation Industry Not on file Not on file Not on file documented as of this encounter Miscellaneous Notes * Telephone Encounter - Shameka Austin M.A. - 04/03/2016 4:04 PM EDT Telephone Information: Left message for pt: to return my call * Telephone Encounter - Lizbeth Mullen M.A. - 03/31/2016 1:05 PM EDT Message left for patient to return my call. * Telephone Encounter - Priti Rajan PA-C - 03/31/2016 12:47 PM EDT Patient had elevated glucose of 174. Please call him to let him know to screen for diabetes, he needs to come back to the lab to get his Hemoglobin A1C done. Please let him know that his electrolytesand kidney function came back normal. documented in this encounter Plan of Treatment Not on file documented as of this encounter Results * HEMOGLOBIN A1C (08/14/2016 10:11 AM EST) Glycosylated Hemoglobin A1C 5.8 4.0 - 6.0 % 08/14/2016 11:20 AM EST [facility] Comment: HbA1C VALUES MAY NOT ACCURATELY REFLECT MEAN BLOOD GLUCOSE IN PATIENTS WITH HEMOGLOBIN VARIANTS SUCH HbF, HbS. 08/14/2016 10:1 1 AM EST 08/14/2016 10:12 AM EST [facility] Performing Organization Address City/State/[facility] Co de Phone Number [address] documented in this encounter Visit Diagnoses Diagnosis Elevated glucose- Primary Other abnormal glucose documented in this encounter Care Teams [employer] Law Clerk Relationship Specialty Start Date End Date Shahid Shen MD [address] [place] [phone] PCP - General Internal Medicine 08/14/13 documented as of this encounter
--- OUTSIDE RECORDS SUMMARY | 2024-08-23 10:52 | XMS_ITS | Encounter Summary ---
Author Organization [facility] Address [address] [place] [address] Care Team Providers Care Distillery Laborer Name Role Phone Shahid Shen MD Primary Care Provider Encounter Details Date Type Department Care Team Description 07/02/2023 Telephone Adult Medicine [address] [phone] Shahid Shen MD [address] [place] [address] [phone] Social History Tobacco Use Types Packs/Day Years [...] on filedocumented in this encounter Care Teams Distillery Laborer Relationship Specialty Start Date End Date Shahid Shen MD [address] [place] [phone] PCP - General Internal Medicine 08/14/13 documented as of this encounter
--- OUTSIDE RECORDS SUMMARY | 2024-08-23 10:52 | XMS_ITS | Encounter Summary ---
Author Organization [facility] Address [address] [place] [address] Care Team Providers Care Technology Training Associate Name Role Phone Shahid Shen MD Primary Care Provider [phone] Encounter Details Date Type Department Care Team Description 10/10/2020 Mine Expert Report Medical Records [address] [place] [address] Tonya Laird Social History Tobacco Use Types Packs/Day Years Used Date Smoking Tobacco: Never Smokeless Tobacco: Never Alcohol Use Standard Drinks/Week Comments Not Asked 0 (1 standard drink = 0.6 oz pur e alcohol) Sex Assigned at Date Recorded Not on file Job Start Date Occupation Industry Not on file Not on file Not on file COVID-19 Exposure Response Date Recorded In the last month, have you been in contact with someone who was confirmed or suspected to have Coronavirus / COVID-19? No / Unsure 09/23/2020 7:42 AM EDT documented as of this encounter Plan of Treatment Not on file documented as of this encounter Visit Diagnoses Not on filedocumented in this encounter Care Teams Technology Training Associate Relationship Specialty Start Date End Date Shahid Shen MD [address] [place] [address] [phone] PCP - General Internal Medicine 08/14/13 documented as of this encounter
--- OUTSIDE RECORDS SUMMARY | 2024-08-23 10:52 | XMS_ITS | Encounter Summary ---
Author Organization [facility] Address [address] [place] [address] Care Team Providers Care Station Air Traffic Control Specialist Name Role Phone Shahid Shen MD Primary Care Provider [phone] Reason for Visit * Reason Onset Date Comments E-prescribe Rx Request 10/14/2022 Encounter Details Date Type Department Care Team Description 10/14/2022 Refill Adult Medicine [address] [phone] Shahid Shen MD [address] [place] [address] [phone] E-prescribe Rx Request Social History Tobacco Use Types Packs/Day Years [...] on filedocumented in this encounter Care Teams Station Air Traffic Control Specialist Relationship Specialty Start Date End Date Shahid Shen MD [address] [place] [phone] PCP - General Internal Medicine 08/14/13 documented as of this encounter
--- OUTSIDE RECORDS SUMMARY | 2024-08-23 10:52 | XMS_ITS | Encounter Summary ---
[facility] Organization [facility] Address [address] [place] [address] Care Team Providers Care Client Business Manager Name Role Phone Shahid Shen MD Primary Care Provider Encounter Details Date Type Department Care Team Description 07/15/2023 Orders Only Medical Records [address] [place] [address] [facility] Social History Tobacco Use Types Packs/Day Years [...] Name Priority Date/Time Associated Diagnosis Comments OUTSIDE CT Routine 07/14/2023 documented in this encounter Results * OUTSIDE CT (07/14/2023) [facility] RADIOLOGY documented in this encounter Visit Diagnoses Not on filedocumented in this encounter Care Teams Client Business Manager Relationship Specialty Start Date End Date Shahid Shen MD [address] [place] [address] PCP - General Internal Medicine 08/14/13 documented as of this encounter
--- OUTSIDE RECORDS SUMMARY | 2024-08-23 10:52 | XMS_ITS | Encounter Summary ---
Author Organization [facility] Address [address] [place] [address] Care Team Providers Care Fishing Rod Mechanic Name Role Phone Shahid Shen MD Primary Care Provider [phone] Reason for Referral * Consultation (Routine) - Authorized Specialty Diagnoses / Procedures Referred By Андрей johnson Referred To Contact Physical Therapy Diagnoses Left hip pain Lora Castillo PA [address] [place] [address] Phone: tel: fax: Referral ID Status Reason Start Date Expiration Date Visits Requested Visits Authorized [id number] Authorized Specialty Services Required 08/17/2024 08/17/2025 25 25 Reason for Visit * Reason Comments Annual Exam Vision: pending 2024 , dental: 5 yr, colonoscopy: 5 yr, Tdap: 2017 Encounter Details Date Type Department Care Team (Late st Contact Info) Description 08/17/2024 8:30 AM EST Office Visit Adult Medicine [address] [phone] Lora Castillo PA [address] [place] [address] [phone] Routine history and physical examination of adult [...] your loved ones. For example, child care specialist or elderly care for an older adult? [...] of flying: Patient reports upcoming trip to [place] 09/07/2024 for a long weekend. He has [...] recently was seen for follow-upfor this in [place]. He has appointment with his orthopedic surgeon in [place] for evaluation of the left side in [...] Diagnosis Date Noted Pre-diabetes 05/02/2018 Morbid obesity ([facility]) 08/14/2013 Allergic rhinitis 10/20/2007 Asthma 04/22/2006 Essential [...] tablet Take 1 tablet (25 mg total) bymnuth 1 (one) time each day in the [...] fear of flying. Has upcoming trip to [place] for a long weekend 09/07/2024. Requesting small supply of Ativan which he previously received. [employer] verified. Ativan 0.5 mg#4 tablets sent to pharmacy. Left hip pain: Patient with chronic left hip pain following with orthopedic surgeon in [place] who completed his right hip replacement. He [...] what REGION should this be scheduled? Answer: [facility] [[id number]] Order Specific Question: In what [place] LOCATION should this be scheduled? Answer: [address] [[id number]] Complete blood count Standing Status: Future Standing [...] 8:30 AM EDT Evaluation Outpatient Rehabilitation - [address] [phone] Kiet Gomes, PT 02/23/2025 9:30 AM EDT Office Visit Adult Medicine South - [address] [phone] Shahid Shen MD [address] [place] [address] Scheduled Orders Name Type Priority Associated Diagnoses [...] documented as of this encounter Care Teams Fishing Rod Mechanic Relationship Specialty Start Date End Date Shahid Shen MD [address] [place] [address] PCP - General Internal Medicine 12/22/05 documented as of this encounter
--- OUTSIDE RECORDS SUMMARY | 2024-08-23 10:52 | XMS_ITS | Encounter Summary ---
Author Organization [facility] Address [address] [place] [address] Care Team Providers Care Directory Compiler Name Role Phone Shahid Shen MD Primary Care Provider [phone] Reason for Visit * Reason Comments E-prescribe Rx Request Encounter Details Date Type Department Care Team Description 08/27/2019 Refill Adult Medicine [address] [phone] Priti Bright PA E-prescribe Rx Request Social History Tobacco Use [...] encounter Miscellaneous Notes * Telephone Encounter - Kristan Graham - 08/29/2019 11:56 AM EDT Patient calling to check status of this refill. * Telephone Encounter - Priti Valenzuela - 08/28/2019 1:52 PM EDT Patient would like script to be: E-PRESCRIBED/FAXED TO PHARMACY WHEN WAS THE PATIENT'S LAST APPOINTMENT IN ADULT MEDICINE? 03/16/19 WHEN WAS THE LAST TIME THE PATIENT SAW THEIR PCP? 09/17/17 Does patient have an upcoming appointment? Yes 09/15/2019 (THE MEDICATION REQUESTED IS ON THE MED LIST ABOVE) All of the medications requested were on the CURRENT MEDS list Did you check the Pharmacy information above?: YES Patient wants: 30 -day supply Is this a mail order prescription request ? NO If the refill is from a FAXED refill request what is the RX # listed on the fax? N/A Patients current insurance carrier is: Payor: [employer] [facility] [employer] / Plan: [employer] $20 TEN MILE 1 / Product Type: [employer] [id number] documented in this encounter Plan of Treatment Not on file documented as of this encounter Visit Diagnoses Not on filedocumented in this encounter Care Teams Directory Compiler Relationship Specialty Start Date End Date Shahid Shen MD [address] [place] [address] PCP - General Internal Medicine 08/14/13 documented as of this encounter
--- OUTSIDE RECORDS SUMMARY | 2024-08-23 10:52 | XMS_ITS | Encounter Summary ---
Author Organization [facility] Address [address] [place] [address] Care Team Providers Care Missile Inspector Name Role Phone Shahid Shen MD Primary Care Provider [phone] Reason for Visit * Reason Onset Date Comments refill request 05/18/2022 ALBUTEROL SULFAT E (ProAir HFA) 108 (90 Base) MCG/ACT Aero Soln Encounter Details Date Type Department Care Team Description 05/18/2022 Refill Adult Medicine [address] [phone] Shahid Shen MD [address] [place] [address] refill request (ALBUTEROL SULFATE (ProAir HFA) 108 (90 Base) MCG/ACT Aero Soln) Social History Tobacco Use Types Packs/Day Years [...] encounter Miscellaneous Notes * Telephone Encounter - Ventura Galeano C.M.A. - 05/18/2022 3:56 PM EST LV 10/28/21 No showed 03/03/22 Appt 09/08/22 * Telephone Encounter - Tremaine Bennett - 05/18/2022 2:02 PM EST Patient would like script to be: E-PRESCRIBED/FAXED TO PHARMACY ?? WHEN WAS THE PATIENT'S LAST APPOINTMENT IN ADULT MEDICINE? 10/28/21 ?? WHEN WAS THE LAST TIME THE PATIENT SAW THEIR PCP? Same as above ?? Does patient have an upcoming appointment? Yes 09/08/22 ?? (THE MEDICATION REQUESTED IS ON THE MED LIST ABOVE) All of the medications requested were on the CURRENT MEDS list ?? Did you check the Pharmacy information above?: YES ?? Patient wants: 90 -day supply ?? Is this a mail order prescription request ? NO ?? If the refill is from a FAXED refill request what is the RX # listed on the fax? N/A ?? Patients current insurance carrier is: Payor: [employer] / Plan: HMO $20 CHEMA 1500 / Product Type: HMO [id number] ?? documented in this encounter Plan of Treatment Not on file documented as of this encounter Visit Diagnoses Not on filedocumented in this encounter Care Teams Missile Inspector Relationship Specialty Start Date End Date Shahid Shen MD [address] [place] [address] PCP - General Internal Medicine 08/14/13 documented as of this encounter
--- OUTSIDE RECORDS SUMMARY | 2024-08-23 10:53 | XMS_ITS | Encounter Summary ---
Author Organization [facility] Address [address] [place] [address] Care Team Providers Care Material Carrier Name Role Phone Community, Pcp Primary Care Provider Italia Maradiaga MD Primary Care Provider Shahid Kim MD Primary Care Provider [phone] Encounter Details Date Type Department Care Team Description 01/13/2011 Refill Adult Medicine [facility] [address] [place] [address] [phone] Shahid Shen MD [address] [place] [address] Social History Tobacco Use Types Packs/Day Years Used Date Smoking Tobacco: Never Alcohol Use Standard Drinks/Week Comments Not Asked 0 (1 standard drink = 0.6 oz pur e alcohol) Sex Assigned at Date Recorded Not on file Job Start Date Occupation Industry Not on file Not on file Not on file documented as of this encounter Miscellaneous Notes * Telephone Encounter - Ashley Bravo - 01/13/2011 9:44 AM EDT DISMISSED OF 06/26/2010. documented in this encounter Plan of Treatment Not on file documented as of this encounter Visit Diagnoses Not on filedocumented in this encounter Care Teams Material Carrier Relationship Specialty Start Date End Date Community, Pcp PCP - General 06/26/10 08/03/13 Italia Maher MD PCP - General Internal Medicine 08/04/13 08/13/13 Shahid Shen MD [address] [place] [address] PCP - General Internal Medicine 08/14/13 documented as of this encounter
--- OUTSIDE RECORDS SUMMARY | 2024-08-23 10:53 | XMS_ITS | Clinical Summary ---
Author Organization [address] Address [address] [place] [phone] Phone Care Team Providers Care Flight Radio Officer Name Role Phone Shahid Shen MD Primary Care Provider Allergies No known active allergies Medications ascorbic [...] 8:30 AM EST Office Visit Adult Medicine [address] [phone] Lora Castillo PA Routine history and physical examination of adult (Primary Dx); Essential hypertension, benign; Pre-diabetes; Moderate persistent asthma without complication; Allergic rhinitis, unspecified seasonality, unspecified trigger; Hyperlipidemia, unspecified hyperlipidemia type; Screening PSA (prostate specific antigen); Left hip pain; Fear of flying 07/10/2024 Telephone Adult Medicine [facility] [address] [place] [phone] Shahid Shen MD Referral (Dr Freddie Mckenzie - [facility] ) 07/04/2024 5:00 PM EST Office Visit Walk-In Clinic [address] [phone] Macy Horvath NP Acute midline low back pain with right-sided sciatica (Primary Dx) 07/04/2024 Nurse Triage Adult Medicine [facility] [address] [place] [phone] Shahid Shen MD Back Pain from Last 3 Months Immunizations Name Administration Dates Next Due Hepatitis B (Wfevkte-Y-Vwxbt , Recombivax HB-Adult) 19yo and older 11/23/2003 [...] Morbid obesity (CMS/HCC) 08/14/2013 DX:Morb id obesity ([facility]) Social History Tobacco Use Types [...] 8:30 AM EDT Evaluation Outpatient Rehabilitation - [address] [phone] Kiet Gomes PT 02/23/2025 9:30 AM EDT Office Visit Adult Medicine [facility] - [address] [phone] Shahid Shen MD [address] [place] [address] Health Maintenance Due Date Last Done Comments [...] * Annual BMP Blood Test (08/12/2023) Pathologist [facility] Annual BMP Blood Test abstracted Result [facility] Provider HEALTH MAINTENANCE Final Result * Hemoglobin A1c (08/12/2023) [facility] Hemoglobin A1C 5.9 <=6.5 % Blood Venous blood specimen / Unknown Historical Provider LAB BLOOD ORDERABLES Adina l Result * (ABNORMAL) Lipid panel (09/11/2022) [facility] LDL/HDL Ratio 4 0 - 4 Triglycerides [...] Most Recently Relevant to Health Maintenance Insurance [facility] Care Teams Flight Radio Officer Relationship Specialty Start Date End Date Shahid Shen MD [address] [place] [address] PCP - General Internal Medicine 12/22/05
[2024-08-23 15:06] LABS: Influenza A PCR NEGATIVE (Negative); Influenza B PCR NEGATIVE (Negative); Resp Syncy Virus RNA Qual PCR NEGATIVE (Negative); SARS COV2 PCR INHOUSE NEGATIVE (Negative)
== END 2024-08-23 09:23 | disposition home or self-care (01) ==
LOC: HO.LAB 09:22
PROVIDERS: Physician Assistant; PCP Internal Medicine
DX: J02.0 Streptococcal pharyngitis (principal); R09.89 Other specified symptoms and signs involving the circulatory and respiratory systems; R05.9 Cough, unspecified; R50.9 Fever, unspecified
CPT/HCPCS: 0241U; 87880

== ENCOUNTER 2024-08-23 09:22 | Outpatient (AMB) | payer OTHER, SELFPAY ==
--- NOTE | 2024-08-23 09:27 | AM.OFFWIN_ITS ---
Intake Vital Signs 08/23/24 09:33 Weight 316 lb BP 120/78 Blood Pressure Location Lt brachial Position Sitting Pulse 102 H Pulse Source Pulse Oximeter Temp 99.4 F Temp Source Oral Pulse Oximetry (%) 95 Oxygen Delivery Method Room Air Intake Visit Reasons: EP-sore throat, chills, body ache Intake Note: Patient here for sore throat and fevers that started yesterday. Patient Tobacco Use Status: Never used Tobacco Allergies Pt states no known allergy to Allergy (Unknown, Uncoded 08/23/24 09:40) none Do you need a note to return to daycare/school/sports/work: Yes HPI HPI Comments History of Present Illness Details History - The patient is a 59-year-old male pres enting with a sore throat and systemic symptoms. - Reported onset of sore throat occurred the day before the previous day. - Symptoms progressed to include chills, mild cough, body aches, and a subjective fever, causing work absence. - Maximum self-assessed temperature luiz rded at home was 99?F. - Patient denies additional respiratory symptoms such as nasal congestion and shortness of breath. - No reported history of asthma or COPD. - Exposed to granddaughter who had strep throat last week. Physical Exam General: Cooperative, healthy appearing, comfortable and no acute distress Orientation/consciousness: Patient oriented x3 Limitations: No limitations Head: Normal to inspection Ears: Hearing grossly normal bilaterally, external ears normal Nose: Normal external nose present, Normal nares present and No nasal discharge present Face and sinus: Normal facial exam and Yes sinuses nontender Mouth: Normal oral and palatal mucosa present and moist mucous membranes Throat: Yes tonsils normal, Yes uvula midline. Posterior oropharynx erythema, exudates noted on right tonsil Eyes: Appearance normal, both eyes and all related structures Neck: Normal visual inspection Respiratory: Clear to auscultation bilaterally. Normal respiratory effort, able to speak in complete sentences, no respiratory distress, not tachypneic, no tripod positioning and no use of accessory muscles Cardiovascular: Regular rate and rhythm. Normal S1 and S2 Skin: No rashes or lesions noted Neuro: Patient oriented x3 Extremities: Normal to inspection and Yes no clubbing, cyanosis or edema [facility] Medical History BMI 50.0-59.9, adult Morbid obesity Morbid obesity with BMI of 50.0-59.9, adult Arthritis of right hip Asthma Hypertension Super obesity Surgical History Status post right hip replacement Family History Father No problems noted. Brother No problems noted. Brother No problems noted. Brother No problems noted. Brother No problems noted. Sister No problems noted. Sister No problems noted. Mother No problems noted. Social History Household Members: Spouse Housing: Apartment Do you presently have visiting nurse or other home services: No Alcohol intake: never Patient Tobacco Use Status: Never used Tobacco e-Cigarette/Vaping Use: Never Used service: No Review of Systems Const All systems reviewed & are unremarkable except as noted in HPI and below Physical Exam Vital Signs: Last Vital Signs Temp 99.4 F 08/23/24 09:33 Pulse 102 H 08/23/24 09:33 BP 120/78 08/23/24 09:33 Pulse Ox 95 08/23/24 09:33 Oxygen Delivery Method Room Air 08/23/24 09:33 Results AMB Rapid Strep AMB Rapid Strep Positive Last Edit by ADRI Avendano on 08/23/24 09:54 Assessment & Plan Assessment & Plan (1) Acute streptococcal pharyngitis: Code(s): J02.0 - Streptococcal pharyngitis Plan: Rapid strep in office is positive. The patient was diagnosed with acute streptococcal pharyngitis and treatment has been initiated with a course of amoxicillin at 500mg every 12 hours for 10 days. The regimen aims to eliminate the infection and reduce symptomatology. The prescription has been sent to the pharmacy, and the patient is advised to ingest the medication alongside food to minimize gastrointestinal discomfort. Continued monitoring of symptoms is advised, with particular emphasis on hydration to support bodily recovery. Given the patient's clear lung auscultation and absence of respiratory compromise, no further respiratory interventions are required at this time. The patient received a work excuse to accommodate his recovery period. Any aggravation of symptoms or failure to improve should prompt reevaluation. Patient was informed and verbally consented to the use of an ambient scribe for clinic note documentation during this visit Orders: Orders SARS-CoV2/FLU/RSV Today R09.89 - Other specified symptoms and signs involving the circulatory and respiratory systems Medications: New amoxicillin 500 mg PO Q12H 20 tabs 0RF Coding Level of Care Code New Pt Level 3 (80735) Diagnoses Acute streptococcal pharyngitis J02.0
[2024-08-23 09:33] VITALS: BP 120/78; PULSE 102; TEMP 37.4; O2SAT 95
--- OUTSIDE RECORDS SUMMARY | 2024-08-23 10:09 | XMS_ITS | Clinical Summary ---
Author Organization [address] Address [address] [place] [phone] Phone Care Team Providers Care Nurseryperson Name Role Phone Shahid Shen MD Primary Care Provider [phone] Allergies No known active allergies Medications ascorbic acid (VITAMIN C) 1,000 mg tablet Take 1 tablet (1,000 mg total) by mouth 1 (one) time each day. Active budesonide (Pulmicort Flexhaler) 90 mcg/actuation inhaler Inhale 1 puff by mouth 2 (two) times a day. 4 Active clotrimazole-be tamethasone (LOTRISONE) 1-0.05 % cream APPLY TOPICALLY TO THE AFFECTED AREA ONCE A DAY 3 Active fluticasone HFA (Flovent HFA) 110 mcg/actuation inhaler Inhale 2 puffs by mouth 2 (two) times a day. 3 Active fluticasone propionate (FLONASE) 50 mcg/actuation nasal spray APPLY ONE SPRAY IN THE AFFECTED NOSTRIL EVERY DAY 3 Active lisinopril (PRINIVIL,ZESTR IL) 40 mg tablet Take 1 tablet (40 mg total) by mouth 1 (one) time each day. 3 Active naphazoline-phe niramine (Naphcon-A) 0.025-0.3 % ophthalmic solution PLACE ONE DROP INTO BOTH EYE(S) FOUR TIMES DAILY 3 Active spironolactone- hydroCHLOROthia zide (ALDACTAZIDE) 25-25 mg per tablet Take 1 tablet (25 mg total) by mouth 1 (one) time each day in the morning. 3 Active multivitamin (MULTIPLE VITAMINS ORAL) Take by mouth. Active amLODIPine (NORVASC) 10 mg tablet TAKE ONE TABLET BY MOUTH EVERY DAY 90 tablet 1 4 Active albuterol HFA (PROAIR HFA ; PROVENTIL HFA ; VENTOLIN HFA) 90 mcg/actuation inhaler INHALE TWO PUFFS BY MOUTH EVERY 4 HOURS NEEDED FOR COUGH OR WHEEZING 18 g 4 Active diclofenac (Cataflam) 50 mg tablet Take 1 tablet (50 mg total) by mouth 2 (two) times a day for 10 days. 20 each 5 Active cyclobenzaprine (FLEXERIL) 10 mg tablet Take 1 tablet (10 mg total) by mouth 2 (two) times a day if needed for muscle spasms for up to 10 days. 20 each 5 Active ibuprofen (ADVIL,MOTRIN) 600 mg tablet Take 1 tablet (600 mg total) by mouth 4 (four) times a day if needed for mild pain (pain). 90 tablet 5 08/18/19 26 Active LORazepam (ATIVAN) 0.5 mg tablet Take 1 tablet by mouth 30-60 minutes prior to flight. May repeat in flight x 1 as needed. 4 tablet 5 Active LORazepam (ATIVAN) 0.5 mg tablet One tab one hour prior to take off may repeat in flight x one as needed 3 08/18/19 25 Discontinu ed(Reorder ) Active Problems Problem Noted Date Diagnosed Date Pre-diabetes 05/02/2018 Morbid obesity 08/14/2013 Allergic rhinitis 10/20/2007 Asthma 04/22/2006 Essential hypertension, benign 04/22/2006 Encounters Date Type Department Care Team Description 08/17/2024 8:30 AM EST Office Visit Adult Medicine [address] [phone] Lora Castillo PA Routine history and physical examination of adult (Primary Dx); Essential hypertension, benign; Pre-diabetes; Moderate persistent asthma without complication; Allergic rhinitis, unspecified seasonality, unspecified trigger; Hyperlipidemia, unspecified hyperlipidemia type; Screening PSA (prostate specific antigen); Left hip pain; Fear of flying 07/10/2024 Telephone Adult Medicine [facility] [address] [place] [phone] Shahid Shen MD Referral (Dr Freddie Mckenzie - [facility] ) 07/04/2024 5:00 PM EST Office Visit [facility]In [facility] [address] [phone] Macy Horvath NP Acute midline low back pain with right-sided sciatica (Primary Dx) 07/04/2024 Nurse Triage Adult Medicine [facility] [address] [place] [phone] Shahid Shen MD Back Pain from Last 3 Months Immunizations Name Administration Dates Next Due Hepatitis B (Ddtxzqu-R-Rplqv , Recombivax HB-Adult) 19yo and older 11/23/2003 Hepatitis B (Recombivax HB-D ialysis) 18yo and older 11/23/2003 Influenza Quadravalent, MDCK , 0.5ml, preservative free (Flucelvax) 6mo and older 02/18/2023,04/20/2022,03/05/2021,03/02,05/02/2018,04/20/2017 Influenza Quadravalent, MDCK , 0.5ml, with preservative (Flucelvax) 6mo and older 03/23/2019 Influenza trivalent, with pr eservative (Fluzone; Afluria) 6mo and older 04/20/2017,03/31/2016,04/17/2015,03/26,03/14/2007,04/22/2006 Influenza, Unspecified 02/12/2014 MMR, measles mumps and rubel la Live (Priorix; M-M-R II) 12mo and older 09/07/2001 Moderna (age 6mo & older) Bi valent, COVID-19, 0.5 mL or 0.25 mL dosage 04/20/2022 PPD Test 02/08/2004,09/02/2001 Pneumococcal polysaccharide 23 valent (Pneumovax 23) 2yo and older 08/14/2016 Td Tetanus diptheria (Tdvax) 7yo and older 11/23/2003 Tdap Tetanus diptheria acell ular pertussis (Boostrix; Adacel) 7yo and older 08/14/2016 Medical History Medical History Date Comments Generalized osteoarthrosis, unspecified site DX:Generalized osteoarthrosi s, unspecified site Essential hypertension, benign D X:Essential hypertension, benign Unspecified asthma(493.90) DX:Un specified asthma(493.90) Morbid obesity (CMS/HCC) 08/14/2013 DX:Morb id obesity ([facility]) Social History Tobacco Use Types Packs/Day Years Used Date Smoking Tobacco: Never Smokeless Tobacco: Never Tobacco Cessation:Counseling Given: Not Answered Alcohol Use Standard Drinks/Week Comments Never 0 (1 standard drink = 0.6 oz pur e alcohol) Housing Instability Answer Date Recorde d Are you worried that in the next 2 months you may not have stable housing? No 08/17/2024 Food Access & Nutrition Answer Date Rec orded Do you have access to a vari ety of food including fruits and vegetables? No 08/17/2024 Access to Healthcare Answer Date Record ed Within the last 3 months, ho w many times did you visit the emergency department for your medical care? 0 08/17/2024 Health Literacy Answer Date Recorded How often do you need to hav e someone help you when you read instructions, pamphlets, or other written material from your doctor or pharmacy? Never 08/17/2024 Caregiver: How often do you need to have someone help you when you read instructions, pamphlets, or other written material from your doctor or pharmacy? Not on file 08/17/2024 Financial Risk Answer Date Recorded How hard is it for you to pa y for the very basics like food, housing, medical care, and air conditioning / heating? Not very hard 08/17/2024 Transportation Answer Date Recorded Has the lack of transportati on kept you from meetings, work, or from getting things needed for daily living? No Has the lack of transportati on kept you from medical appointments or from getting medications? No 08/17/2024 Social Isolation Answer Date Recorded How often do you feel lonely or isolated from th ose around you? Never 08/17/2024 Food Risk Answer Date Recorded Within the past 12 months we worried whether our food would run out before we got money to buy more. Never true 08/17/2024 Within the past 12 months th e food we bought just didn't last and we didn't have money to get more. Never true 08/17/2024 Dependent Care Answer Date Recorded Do you need help finding or paying for care for your loved ones. For example, child care cook or elderly care for an older adult? No 08/17/2024 Education Answer Date Recorded Do you think completing more education or training, like finishing a GED, going to college, or learning a trade, would be helpful for you? No 08/17/2024 Employment and Income Answer Date Recor ded During the last four weeks, have you been actively looking for work? No 08/17/2024 Living Situation Answer Date Recorded What is your living situation? 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 Not on file Not on file Not on file Obstetrics History Last Filed Vital Signs Vital Sign Reading Time Taken Comments Blood Pressure 136/74 08/17/2024 8:22 AM EST Pulse 90 08/17/2024 8:22 AM EST Temperature 36.2 ??C (97.2 ??F) 08/17/2024 8:22 AM ES T Respiratory Rate - - Oxygen Saturation 95% 08/17/2024 8:22 AM EST Inhaled Oxygen Concentration - - Weight 146 kg (322 lb) 08/17/2024 8:22 AM EST Height 170.2 cm (5' 7.01 ) 08/17/2024 8:22 AM ES T Body Mass Index 50.42 08/17/2024 8:22 AM EST Plan of Treatment Upcoming Encounters Date Type Department Care Team (Late st Contact Info) Description 09/05/2024 8:30 AM EDT Evaluation Outpatient Rehabilitation - [address] [phone] Kiet Gomes PT 02/23/2025 9:30 AM EDT Office Visit Adult Medicine [facility] - [address] [phone] Shahid Shen MD [address] [place] [phone] Health Maintenance Due Date Last Done Comments Diabetes: Annual Foot Exam 1977 Diabetes: Annual Retina Eye Exam 1977 Hepatitis B Vaccines (2 of 3 - 19+ 3-dose series) 12/21/2003 11/23/2003, 11/23/2003 Zoster Vaccines (1 of 2) 2017 Pneumococcal Vaccine: 50+ Years (2 of 2 - PCV) 08/14/2017 08/14/2016 Pneumococcal Vaccine: Pediatrics (0 to 5 Years) and At-Risk Patients (6 to 64 Years) (2 of 2 - PCV) 08/14/2017 08/14/2016 HIV Screening 05/23/2022 COVID-19 Vaccine ( season) 2024 04/20/2022, 09/28/2020, 08/28/2020 Diabetes: Annual Urine Albumin-Creatinine Ratio (uACR) 07/05/2024 Diabetes: Blood Sugar Control Test (HGBA1C) 07/05/2024 08/12/2023 Diabetes: Annual GFR (Glomerular Filtration Rate) 08/11/2024 08/12/2023 Hypertension/CHF/CAD Annual BMP Blood Test 08/11/2024 08/12/2023 Depression Screening 08/17/2025 08/17/2024 Social Influencers of Health Screening 08/17/2025 08/17/2024 DTaP,Tdap,and Td Vaccines (3 - Td or Tdap) 08/14/2026 08/14/2016, 11/23/2003 Colorectal Cancer Screening: Colonoscopy 08/26/2026 08/26/2021, 08/26/2021 Cholesterol Screening (Lipid Panel) 09/12/2027 09/11/2022, 09/11/2022 MMR Vaccines Aged Out 09/07/2001 No longer eligi ble based on patient's age to complete this topic Hepatitis C Screening Completed 07/21/2020 Influenza Vaccine Completed 04/22/2024, , 04/20/2022, Additional history exists HIB Vaccines Aged Out No longer eligi ble based on patient's age to complete this topic HPV Vaccines Aged Out No longer eligi ble based on patient's age to complete this topic Hepatitis A Vaccines Aged Out No long er eligible based on patient's age to complete this topic IPV Vaccines Aged Out No longer eligi ble based on patient's age to complete this topic Meningococcal ACWY Vaccine Aged Out N o longer eligible based on patient's age to complete this topic Meningococcal B Vacine Aged Out No lo nger eligible based on patient's age to complete this topic RSV Immunization Patients Under 20 months Aged Out No longer eligible based on patient's age to complete this topic Varicella Vaccines Aged Out No longer eligible based on patient's age to complete this topic Procedures Procedure Name Priority Date/Time Associated Diagnosis Comments ANNUAL BMP BLOOD TEST Routine 08/12/2023 HEMOGLOBIN A1C Routine 08/12/2023 LIPID PANEL Routine 09/11/2022 COLONOSCOPY Routine 08/26/2021 HEPATITIS C SCREENING Routine 07/21/2020 from Last 3 Months or Most Recently Relevant to Health Maintenance Results * Annual BMP Blood Test (08/12/2023) Pathologist [facility] Annual BMP Blood Test abstracted Result [facility] Provider HEALTH MAINTENANCE Final Result * Hemoglobin A1c (08/12/2023) [facility] Hemoglobin A1C 5.9 <=6.5 % Blood Venous blood specimen / Unknown Historical Provider LAB BLOOD ORDERABLES Adina l Result * (ABNORMAL) Lipid panel (09/11/2022) [facility] LDL/HDL Ratio 4 0 - 4 Triglycerides 72 0 - 150 mg/dL Cholesterol 158 0 - 200 mg/dL HDL 37(A) >=40 mg/dL LDL Cholesterol 107(A) 0 - 100 mg/dL Blood Venous blood specimen / Unknown Historical Provider LAB BLOOD ORDERABLES Adina l Result * Colonoscopy (08/26/2021) Colonoscopy abstracted, no interpretation Anatomical Region Laterality Modality Other Historical Provider HEALTH MAINTENANCE Final Result * Hepatitis C Screening (07/21/2020) Hepatitis C Screening abstracted Historical Provider HEALTH MAINTENANCE Final Result from Last 3 Months or Most Recently Relevant to Health Maintenance Insurance [facility] Care Teams Nurseryperson Relationship Specialty Start Date End Date Shahid Shen MD [address] [place] [id number] PCP - General Internal Medicine 12/22/05
--- OUTSIDE RECORDS SUMMARY | 2024-08-23 10:09 | XMS_ITS | Encounter Summary ---
Author Organization [employer] Address [address] [place] [address] Care Team Providers Care Data Management Name Role Phone Shahid Shen MD Primary Care Provider [phone] Reason for Referral * Consultation (Routine) - Authorized Specialty Diagnoses / Procedures Referred By Андрей johnson Referred To Contact Physical Therapy Diagnoses Left hip pain Lora Castillo PA [address] [place] [phone] Phone: tel: fax: Referral ID Status Reason Start Date Expiration Date Visits Requested Visits Authorized [id number] Authorized Specialty Services Required 08/17/2024 08/17/2025 25 25 Reason for Visit * Reason Comments Annual Exam Vision: pending 2024 , dental: 5 yr, colonoscopy: 5 yr, Tdap: 2017 Encounter Details Date Type Department Care Team (Late st Contact Info) Description 08/17/2024 8:30 AM EST Office Visit Adult Medicine [address] [phone] Lora Castillo PA [address] [place] [address] [phone] Routine history and physical examination of adult (Primary Dx); Essential hypertension, benign; Pre-diabetes; Moderate persistent asthma without complication; Allergic rhinitis, unspecified seasonality, unspecified trigger; Hyperlipidemia, unspecified hyperlipidemia type; Screening PSA (prostate specific antigen); Left hip pain; Fear of flying Social History Tobacco Use Types Packs/Day Years [...] care for your loved ones. For example, children's book author or elderly care for an older adult? [...] file Not on file Not on file documented as of this encounter Last Filed Vital Signs Vital Sign Reading [...] Mass Index 50.42 08/17/2024 8:22 AM EST documented in this encounter Ordered Prescriptions Prescription Sig Dispense Quantity Refills Last Filled Start Date End Date LORazepam (ATIVAN) 0.5 mg tablet Take 1 tablet by mouth 30-60 minutes prior to flight. May repeat in flight x 1 as needed. 4 tablet 08/17/2024 ibuprofen (ADVIL,MOTRIN) 600 mg tablet Take 1 tablet (600 mg total) by mouth 4 (four) times a day if needed for mild pain (pain). 90 tablet 08/17/2024 documented in this encounter Progress Notes * ISIS Reyes - 08/17/2024 8:30 AM EST CHIEF COMPLAINT: Annual Exam (Vision: pending 2024, dental: 5 yr, colonoscopy: 5 yr, Tdap: 2016) IDENTIFIER: Stephen Reyes is a 59 y.o. old male. HPI: Patient is a 59-year-old male who presents to the office today for routine physical examination. The patient tries to eat balanced meals, states he has been having smaller portions. He previously waswalking for exercise, has not been able to do so lately due to his hip pain. Patient denies use of tobacco, alcohol or illicit drugs. Hypertension: Blood pressure in the office today stable at 136/74. He is on lisinopril 40 mg, amlodipine 10 mg and spironolactone-hydrochlorothiazide 25-25 mg daily. He denies having any chest pain, palpitations, shortness of breath, lightheadedness, dizziness or headaches. Prediabetes: Last hemoglobin A1c from 07/2023 was controlled at 5.9. As noted above, patient has been trying to eat smaller portions. He denies polydipsia/polyuria. Hyperlipidemia: Lipid panel from 08/2022 shows LDL at 107. Patient is not on statin. Allergic rhinitis: Patient with history of allergic rhinitis. Uses Flonase as needed. Symptoms havebeen well-controlled. Asthma: Patient is on Flovent daily and albuterol as needed. He denies shortness of breath or wheezing, symptoms well-controlled. Fear of flying: Patient reports upcoming trip to [place] 09/07/2024 for a long weekend. He has history of anxiety/fear of flying. He previously received Ativan 0.5 mg #4 tablets. He is requesting prescription to have for his flight. [employer] was verified, has not received prescription since 2022. Left hip pain: Patient with chronic left hip pain. Symptoms began along the back of his left hip and radiates down the side of his left leg to his toes. He denies incontinence of urine/stool. Patientreports history of right hip replacement about 6 or 7 years ago. He recently was seen for follow-upfor this in [place]. He has appointment with his orthopedic surgeon in [place] for evaluation of the left side in September. Health Maintenance: -Influenza vaccine: Up-to-date -Tdap: Up-to-date -COVID-vaccine: Completed 3 -Depression screening: Completed -Social needs screening: Completed -Vision: Upcoming appointment 2024 -Dentist: Last completed 5 years ago -Colon cancer screening: Last completed 08/2021 with follow-up recommended in 5 years, currently up-to-date ROS: GENERAL: Negative for malaise, significant weight loss and fever HEENT: No changes in hearing or vision. No nosebleeds or other nasal problems NECK: Negative for lumps, goiter, pain, and significant neck swelling RESPIRATORY: No cough, wheezing or shortness of breath CARDIOVASCULAR: Negative for chest pain, leg swelling and palpitations GI: Negative for abdominal discomfort, changes in bowel habits, blood in stool or black stools : Negative for dysuria, frequency, and incontinence MUSCULOSKELETAL: See HPI SKIN: No lesions, rash, or itching PSYCH: See HPI HEMATOLOGY/LYMPHOLOGY: No prolonged bleeding, easy bruising, or swollen lymph nodes ENDOCRINE: Negative for cold or heat intolerance, polyuria, polydipsia and goiter NEURO: No persistent headache, fainting, seizures, strokes, TIAs, weakness, numbness or tingling The remainder of review of systems is noncontributory. PAST MEDICAL HISTORY: Patient Active Problem List Diagnosis Date Noted Pre-diabetes 05/02/2018 Morbid obesity ([facility]) 08/14/2013 Allergic rhinitis 10/20/2007 Asthma 04/22/2006 Essential hypertension, benign 04/22/2006 SOCIAL HISTORY: Social History Tobacco Use Smoking status: Never Smokeless tobacco: Never Substance Use Topics Alcohol use: Never FAMILY HISTORY: No family status information on file. No family history on file. ACTIVE MEDICATIONS: Outpatient Medications Marked as Taking for the 08/17/24 encounter (Office Visit) with ISIS Reyes Medication Sig Dispense Refill albuterol HFA (PROAIR HFA ; PROVENTIL HFA ; VENTOLIN HFA) 90 mcg/actuation inhaler INHALE TWO PUFFSBY MOUTH EVERY 4 HOURS NEEDED FOR COUGH OR WHEEZING 18 g 0 amLODIPine (NORVASC) 10 mg tablet TAKE ONE TABLET BY MOUTH EVERY DAY 90 tablet 1 budesonide (Pulmicort Flexhaler) 90 mcg/actuation inhaler Inhale 1 puff by mouth 2 (two) times a day. fluticasone HFA (Flovent HFA) 110 mcg/actuation inhaler Inhale 2 puffs by mouth 2 (two) times a day. lisinopril (PRINIVIL,ZESTRIL) 40 mg tablet Take 1 tablet (40 mg total) by mouth 1 (one) time each day. LORazepam (ATIVAN) 0.5 mg tablet Take 1 tablet by mouth 30-60 minutes prior to flight. May repeat in flight x 1 as needed. 4 tablet 0 spironolactone-hydroCHLOROthiazide (ALDACTAZIDE) 25-25 mg per tablet Take 1 tablet (25 mg total) bypauth 1 (one) time each day in the morning. [DISCONTINUED] LORazepam (ATIVAN) 0.5 mg tablet One tab one hour prior to take off may repeat in flight x one as needed ALLERGIES: Patient has no known allergies. PHYSICAL EXAM: Blood pressure 136/74, pulse 90, temperature 36.2 ??C (97.2 ??F), temperature source Temporal, height 1.702 m (67.01 ), weight 146 kg (322 lb), SpO2 95%. Body mass index is 50.42 kg/m??. BMI is greater than 25.0 (above the normal range) - see Plan APPEARANCE: Alert and in no acute distress EYES: PERRLA, conjunctiva and sclera normal and normal fundal exam EARS: External ears normal. Canals clear. TMs normal. NOSE/SINUS: Nares normal. Septum midline. Mucosa normal. No drainage or sinus tenderness MOUTH/THROAT: no erythema, lesions, or exudates NECK: Neck supple, no adenopathy, thyroid symmetric and of normal size HEART: RRR with normal S1 and S2, no murmurs, no gallops, no JVD appreciated CHEST: non-tender LUNG: clear to auscultation bilaterally ABDOMEN: soft, non-tender, without organomegaly or palpable masses BACK: good flexion and extension EXTREMITIES: Extremities warm and well perfused without clubbing, cyanosis, or edema NEURO: Awake, alert and oriented x 3 SKIN: Skin color, texture, turgor normal. No rashes or lesions. LABS/IMAGING: No results found for: WBC , HGB , HCT , MCV No results found for: NA , K , CO2 , CL , BUN , GLU , ALB , ALKPHOS , TP Lab Results Component Value Date CHOL 158 09/11/2022 LDL 107 (A) 09/11/2022 HDL 37 (A) 09/11/2022 TRIG 72 09/11/2022 IMPRESSION: 1. Routine history and physical examination of adult 2. Essential hypertension, benign 3. Pre-diabetes 4. Moderate persistent asthma without complication 5. Allergic rhinitis, unspecified seasonality, unspecified trigger 6. Hyperlipidemia, unspecified hyperlipidemia type 7. Screening PSA (prostate specific antigen) 8. Left hip pain 9. Fear of flying PLAN: Hypertension: Blood pressure today is at goal. Continue current regimen; lisinopril 40 mg, amlodipine 10 mg and spironolactone-hydrochlorothiazide 25-25 mg daily. Will update renal function and electrolytes. Prediabetes: Hemoglobin A1c ordered. Recommended well-balanced diet low in carbohydrates/sweets. Hyperlipidemia: Lipid panel ordered. Allergic rhinitis: Controlled. Continue Flonase as needed. Asthma: Symptoms controlled. Continue Flovent daily and albuterol as needed. Fear of flying: Patient with fear of flying. Has upcoming trip to [place] for a long weekend 09/07/2024. Requesting small supply of Ativan which he previously received. [employer] verified. Ativan 0.5 mg#4 tablets sent to pharmacy. Left hip pain: Patient with chronic left hip pain following with orthopedic surgeon in [place] who completed his right hip replacement. He does have upcoming appointment next month, however requestingto have imaging done. X-ray ordered. Will provide ibuprofen 600 mg every 6 hours as needed for painmanagement. Will also provide referral for physical therapy. 1. Health maintenance: The patient presented for an evaluation of general health. As part of this visit, we reviewed the following issues, which are considered an essential part of preventative health in this age group: - Prostate cancer screening with digital rectal exam and PSA testing - ordered - Colon cancer screening (colonoscopy every 10 years/annual FOBT plus flexi sigmoidoscopy every 5 years/double-contrast BE every 5 years/Cologuard every 3 years/Annual FOBT) - up to date - Testicular cancer screening, which includes self-exam teaching - Blood pressure screening yearly - Cholesterol screening every five years - ordered - Nutritional and exercise counseling - patient advised to pursue at least 30 minutes of exercise most days of the week and limit portion sizes - Counseling of injury prevention including fire prevention, smoke alarms and seat belt usage - Screening for depression - using the PHQ-9 - Screening for domestic abuse - Screening for Type 2 diabetes mellitus in those with hypertension and/or hyperlipidemia - Education about skin cancer - Recommendations about immunizations - patient is up-to-date on immunizations - Recommendation of an eye exam for glaucoma every 2-4 years in this age range - patient is up-to-date - Screening for substance abuse (including tobacco, alcohol, and recreational drugs) - see Substance & Sexuality section of medical record - Genetic cancer risk screening - NO INDICATION: Hereditary Cancer Syndrome Risk Assessment completed and evaluated. No indication found for genetic testing at this time. - In addition to reviewing these issues, I have reviewed the following sections of the chart: Past Medical History, Social History, and Social History - Did you have a dental visit in the last 12 months? No Follow up recommended in 6 months. Orders Placed This Encounter Procedures XR Hip 2-3 Views Left Standing Status: Future Standing Expiration Date: 08/17/2025 Order Specific Question: In what REGION should this be scheduled? Answer: [facility] [[id number]] Order Specific Question: In what [place] LOCATION should this be scheduled? Answer: [address] [[id number]] Complete blood count Standing Status: Future Standing Expiration Date: 11/17/2024 Basic metabolic panel Standing Status: Future Standing Expiration Date: 11/17/2024 Lipid panel with reflex to direct LDL Standing Status: Future Standing Expiration Date: 11/17/2024 Hemoglobin A1c Standing Status: Future Standing Expiration Date: 11/17/2024 Prostate specific antigen screen Standing Status: Future Standing Expiration Date: 11/17/2024 Ambulatory referral to Physical Therapy and Athletic Training Standing Status: Future Standing Expiration Date: 08/17/2025 Referral Priority: Routine Referral Type: Consultation Referral Reason: Specialty Services Required Requested Specialty: Physical Therapy Number of Visits Requested: 1 ISIS Reyes on 08/17/2024 at 12:52 PM EST documented in this encounter Plan of Treatment Upcoming Encounters Date Type Department Care Team (Late st Contact Info) Description 09/05/2024 8:30 AM EDT Evaluation Outpatient Rehabilitation - [address] [phone] Kiet Gomes, PT 02/23/2025 9:30 AM EDT Office Visit Adult Medicine South - [address] [phone] Shahid Shen MD [address] [place] [address] Scheduled Orders Name Type Priority Associated Diagnoses Orde r Schedule Complete blood count Lab Routine Routine history and physical examination of adult 1 Occurrences starting 08/17/2024 until 11/17/2024 Basic metabolic panel Lab Routine Routine history and physical examination of adult Pre-diabetes 1 Occurrences starting 08/17/2024 until 11/17/2024 Lipid panel with reflex to direct LDL Lab Routine Routine history and physical examination of adult Pre-diabetes Hyperlipidemia, unspecified hyperlipidemia type 1 Occurrences starting 08/17/2024 until 11/17/2024 Hemoglobin A1c Lab Routine Pre-diabetes 1 Occurrences starting 08/17/2024 until 11/17/2024 Prostate specific antigen screen Lab Routine Screening PSA (prostate specific antigen) 1 Occurrences starting 08/17/2024 until 11/17/2024 XR Hip 2-3 Views Left Imaging Routine Left hip pain Expected: 08/17/2024, Expires: 08/17/2025 Scheduled Referrals Name Type Priority Associated Diagnoses Order Schedule Ambulatory referral to Physical Therapy and Athletic Training Outpatient Referral Routine Left hip pain 1 Occurrences starting 08/17/2024 until 08/17/2025 documented as of this encounter Visit Diagnoses Diagnosis Routine history and physical examination of adult- Primary Essential hypertension, benign Pre-diabetes Other abnormal glucose Moderate persistent asthma without complication Allergic rhinitis, unspecified seasonality, unspecified trigger Hyperlipidemia, unspecified hyperlipidemia type Screening PSA (prostate specific antigen) Special screening for malignant neoplasm of prostate Left hip pain Pain in joint, pelvic region and thigh Fear of flying documented in this encounter Discontinued Medications Medication Sig Discontinue Reason Start Date End Da te LORazepam (ATIVAN) 0.5 mg tablet One tab one hour prior to take off may repeat in flight x one as needed Reorder 05/31/2023 08/17/2024 documented as of this encounter Additional Health Concerns Assessment Noted Time PHQ-9 Depression Total Score: 3 08/18/19 25 1:43 PM EST documented as of this encounter Care Teams Data Management Relationship Specialty Start Date End Date Shahid Shen MD [address] [place] [phone] PCP - General Internal Medicine 12/22/05 documented as of this encounter
== END 2024-08-23 09:57 | disposition home or self-care (01) ==
PROVIDERS: PCP Internal Medicine; Visit Provider Physician Assistant
DX: J02.0 Streptococcal pharyngitis (principal); Z13.9 Encounter for screening, unspecified

== ENCOUNTER 2025-05-09 07:25 | Outpatient (AMB) | payer OTHER, SELFPAY ==
--- OUTSIDE RECORDS SUMMARY | 2024-12-29 02:30 | XMS_ITS | Continuity of Care Document ---
Author Organization [facility] Address [address] [place] [address] Phone Care Team Providers Care Casing Puller Name Role Phone Luis WU, RVT, LELAND, Thony Unavailable U navailable Allergies, Adverse Reactions, Alerts Substance Reaction Status Criticality No Known Allergies Active No Inform ation Procedures Procedure Date Duplex Scan-extrem Veins; Uni/ CT & [place] J Inj Scleros Solut; Mx Veins 1- CT & [place] J Ultrason Guidan Needle Bx-rad- CT & [place] J Duplex Scan-extrem Veins; Uni/ CT & MA J Inj Scleros Solut; Mx Veins 1- CT & MA J Ultrason Guidan Needle Bx-rad- CT & MA J Duplex Scan-extrem Veins; Uni/ CT & MA J Inj Scleros Solut; Mx Veins 1- CT & MA J Ultrason Guidan Needle Bx-rad- CT & MA J Duplex Scan-extrem Veins; Uni/ CT & [place] J Endovenous Laser, 1st Vein- CT & [place] Endovenous laser vein addon- CT & MA Nov Ultrason Guidan Needle Bx-rad- CT & MA J Inj Sclerosing Solution; Sngl- CT & [place] J Offic/outpt E&m Estab 5 Min Trial- Telem edicine CT & [place] Offic/outpt E&m Estab 5 Min Trial- Telem edicine CT & [place] Offic Cons New/estab Mod 40 Mi- CT & [place] Duplex Scan-extrem Veins; Comp- CT & [place] Advance Directives Directive Yes / No Effective Date File Name No Information Encounters Encounter Description Practice Location Reason(s) For Visit Diagnoses Date Provider Providers Copied on Encounter [facility], [address] [place] [address] Dr Arredondo 1000SuTeo nunn [place], [id number], tel:[phone] [facility] - [facility] Encounter for follow-up examination after completed treatment for conditions other than malignant neoplasmChro lynne venous hypertension (idiopathic) with other complication s of left lower extremity 5 Luis WU RVT, LELAND Bhandari. [address] [place] [address], [id number], [place]. tel:[phone] Referring Provider: Shahid Shen MD, [address] [place] [address], [address]. tel:[phone] [facility], [address] [place] [address] Dr Arredondo 1000Suite [place], [id number], [place] tel:[phone] [facility] Varicose veins of left lower extremity with other complication s 5 Luis WU RVT, RPVI Robert. [address] [place] [address], [id number], [place]. tel:[phone] Referring Provider: Shahid Shen MD, [address] [place] [address], [id number]. tel:[phone] [facility], [address] [place] [address] Dr Arredondo [address]Suite [place], [id number], [place] tel:[phone] [facility] - [facility] Encounter for follow-up examination after completed treatment for conditions other than malignant neoplasmChro lynne venous hypertension (idiopathic) with other complication s of left lower extremity 5 Luis WU RVTLELAND. [address] [place] [address], [place], [place], [id number], [place]. tel:[phone] Referring Provider: Shahid Shen MD, [address] [place] [address], [id number]. tel:[phone] [facility], [address] [place] [address] Dr Arredondo 1000Suite [place], [id number], [place] tel:[phone] [facility] - [place] [facility] [employer] Varicose veins of right lower extremity with other complication s 5 Luis WU RVT, LELAND Bhandari. [address] [place] [address], [place], [place], [id number], [place]. tel:[phone] Referring Provider: Shahid Shen MD, [address] [place] [address], [id number]. tel:[phone] [facility], [address] [place] [address] [facility] [place] [address] [place], [id number], [place] tel:[phone] [facility] [place] [facility] [employer] Encounter for follow-up examination after completed treatment for conditions other than malignant neoplasmChro lynne venous hypertension (idiopathic) with other complication s of right lower extremity 5 Luis WU RVT, LELAND Bhandari. [address] [place] [address], [place], [place], [id number], [place]. tel:[phone] Referring Provider: Shahid Shen MD, [address] [place] [address], [id number]. tel:[phone] [facility], [address] [place] [address] Dr Arredondo [address] [facility] [place], [id number], [place] tel:[phone] [facility] - [place] [facility] [employer] Varicose veins of right lower extremity with other complication s 5 Luis WU RVT, LELAND Bhandari. [address] [place] [address], [place], [place], [id number], [place]. tel:[phone] Referring Provider: Shahid Shen MD, [address] [place] [address], [address]. tel:[phone] [facility], [address] [place] [address] Dr Arredondo 1000[address] 1000Teo [place], [id number], [place] tel:[phone] [facility] - [facility] Encounter for follow-up examination after completed treatment for conditions other than malignant neoplasmVari cose veins of right lower extremity with pain 5 Luis WU RVT, LELAND Bhandari. [address] [place] [address], [facility] jesse [place], [id number], [place]. tel:[phone] Referring Provider: Shahid Shen MD, [address] [place] [address], [address]. tel:[phone] [facility], [address] [place] [address] Dr Arredondo 1000[address] 1000Teo [place], [id number], [place] tel:[phone] [facility] Varicose veins of right lower extremity with other complication s 5 Luis WU RVT, LELAND Bhandari. [address] [place] [address], [facility] [employer]MIN[place] [employer], [place], [id number], [place]. tel:[phone] Referring Provider: Shahid Shen MD, [address] [place] [address], [address]. tel:[phone] Offic/outpt E&m Estab 5 Min Trial- Telemedicine CT & [place] [facility], [address] [place] [address] Dr Arredondo 1000[address] 1000Teo [place], [id number], [place] tel:[phone] [facility] Localized edemaCramp and spasmRestles s legs syndromeVeno us insufficienc y (chronic) (peripheral) Type 2 diabetes mellitus without complication sLymphedema, not elsewhere classifiedPr uritus, unspecifiedH ereditary lymphedema Mar-2 5 Donell Olivarez. [address] [place] [address], [facility] [place]esse [place], [id number], [place]. tel:[phone] Referring Provider: Shahid Shen MD, [address] [place] [address], [address]. tel:[phone] [facility], [address] [place] [address] Dr Arredondo 1000SuTeo nunn [place], [id number], [place] tel:[phone] [facility] - [facility] Chronic venous hypertension (idiopathic) without complication s of bilateral lower extremity 5 Luis WU, MEERA, LELAND Bhandari. [address] [place] [address], [facility] mol[facility] [place], [id number], [place]. tel:[phone] [facility], [address] [place] [address] Dr Arredondo 1000ite [place], [id number], [place] tel:[phone] [facility] - [facility] No Information 5 Luis WU, MEERA, LELAND Bhandari. [address] [place] [address], Angely molina [place], [id number], [place]. tel:[phone] Offic/outpt E&m Estab 5 Min Trial- Telemedicine CT & [place] [facility], [address] [place] [address] Dr Arredondo 1000Teo nunn [place], [id number], [place] tel:[phone] [facility] Localized edemaCramp and spasmRestles s legs syndromeVeno us insufficienc y (chronic) (peripheral) Type 2 diabetes mellitus without complication sLymphedema, not elsewhere classifiedPr uritus, unspecifiedH ereditary lymphedema 5 Donell Olivarez. [address] [place] [address], [facility] molina [place], [id number], [place]. tel:[phone] Referring Provider: Shahid Shen MD, [address] [place], [address]. tel:[phone] Offic Cons New/estab Mod 40 Mi- CT & [place] [facility], [address] [place] [address] Dr Arredondo 1000SuTeo nunn [place], [id number], [place] tel:[phone] [facility] - [facility] Chronic venous hypertension (idiopathic) without complication s of bilateral lower extremityTyp e 2 diabetes mellitus without complication sRestless legs syndromeLymp hedema, not elsewhere classifiedPr uritus, unspecifiedP ain in left legHereditar y lymphedemaCr amp and spasmLocaliz ed edema 4 Luis WU, MEERA, RPRICHARDSON Bhandari. [facility], [address] [facility], Angely molina [place], [id number], [place]. tel:[phone] [facility], [address] [facility] [address], [place], [id number], [place] tel:[phone] [facility] Varicose veins of bilateral lower extremities with pain 4 Luis WU, MEERA, LELAND Bhandari. [address] [facility], [place] [address], Ang[place] molina [place], [id number], [place]. tel:[phone] Referring Provider: Thony Smith MD, MEERA, LELAND, [address] [place] [address], [id number]. tel:[phone] Family History Family Member Type Diagnosis Age At Onset No Information Payers Payer name Insurance type Covered democrat ID [facility] [employer] [facility] [id number] Social History Type Description Quantity Date Captured Comments Sex Male Smoking Status No Information Chief Complaint And Reason For Visit No Information Reason For Referral Reason For Referral No Information Plan Of Treatment Date Type Action Status Goal Diet education completed Referral Ordered: Weight management: Referral to physician timeframe: 3 Months (related to Body mass index (BMI) 45.0-49.9, adult) ordered History Of Present Illness Encounter Date Complaint History Of Prese nt Illness No Information Functional Status Date Functional Assessmen t No Information Instructions Date Instruction Additional Infor mation Pre and post instruc tions reviewed and provided Related to Localized edema Patient education booklet given Related to Localized edema Pre and post instruc tions reviewed and provided Related to Localized edema Patient education booklet given Related to Localized edema Patient education booklet given Related to Chronic venous hypertension (idiopathic) without complications of bilateral lower extremity Lifestyle education Related to B sabrina mass index (BMI) 45.0-49.9, adult Giving Encouragement to exercise Related to Body mass index (BMI) 45.0-49.9, adult Diet education Related to Body mass index (BMI) 45.0-49.9, adult Pre and post instruc tions reviewed and provided Related to Chronic venous hypertension (idiopathic) without complications of bilateral lower extremity Assessments Type Assessment Date No Information Patient Care Teams Name Effective Dates (start - stop) Status Members No Information
[2025-05-09 07:28] VITALS: BMI 47.8
--- NOTE | 2025-05-09 07:28 | A.PHYSOV_ITS ---
Vital Signs 05/09/25 07:28 Height 5 ft 7 in Weight 305 lb BMI 47.8 Intake Visit Reasons: 1M FUV (MRI) Intake Note: Patient is a 59 year old male in office today for lumbar spine mri. 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 The patient has had symptoms for over a year with no specific injury reported. The pain is exacerbated by standing, rated 7/10, and improves with sitting. The patient reports a positive shopping cart sign, ambulates with a single point cane, and denies any fever, chills, or changes in bowel or bladder habits. The pain radiates to the left hip. Past medical history is significant for a right total hip arthroplasty about 6 years ago. The patient was evaluated by an orthopedic surgeon, and hip x-rays showed arthritis. A left hip intra-articular injection on October 30, 2024, provided only minimal symptom reduction, and the patient has also had physical therapy. Patient returns with results of lumbosacral spine MRI performed on 04/14/2025, and it was consistent with multilevel neural foraminal stenosis, moderate to severe on the left at the L2-L3 level, moderate on the left at the L3-L4 level, patient has transitional segment with partial sacralization of the L5 level. Images were independently reviewed and discussed with the patient in detail. Pathophysiology of his condition was discussed. Pain Description - Onset: The patient has experienced symptoms for over one year. - Location: The pain is in the lower back. - Radiation: Pain radiates to the bilateral thighs, with the left side being worse than the right, and occasionally into the groin. - Severity: Pain is rated 7/10 when standing. - Exacerbating Factors: Pain is worse with standing. - Relieving Factors: Pain is relieved by sitting down and leaning forward, as indicated by a positive shopping cart sign. Results - Lumbosacral spine X-ray (12/22/2024): Showed a transitional vertebra at the lumbosacral junction, labeled S-L5. - Lumbosacral spine MRI (04/14/2025): - L1-L2: Moderate left foraminal stenosis. - L2-L3: Moderate to severe left foraminal stenosis. - L3-L4: Moderate to severe right and moderate left neural foraminal narrowing. - L4-L5: Moderate bilateral neural foraminal narrowing. [facility] Medical History (Updated 05/09/25 @ 07:52 by Darek John DO) Degenerative joint disease (DJD) of hip Spinal stenosis, lumbar region with neurogenic claudication Lumbar radiculitis BMI 50.0-59.9, adult Morbid obesity Morbid obesity with BMI of 50.0-59.9, adult Arthritis of right hip Asthma Hypertension Super obesity Surgical History Status post right hip replacement Family History Father No problems noted. Brother No problems noted. Brother No problems noted. Brother No problems noted. Brother No problems noted. Sister No problems noted. Sister No problems noted. Mother No problems noted. Social History Household Members: Spouse Housing: Apartment Do you presently have visiting nurse or other home services: No Alcohol intake: never Patient Tobacco Use Status: Never used Tobacco e-Cigarette/Vaping Use: Never Used service: No Review of Systems Narrative Review of Systems - Constitutional: Denies fever or chills. - Musculoskeletal: Reports lower back pain that radiates to bilateral thighs, left greater than right. - Gastrointestinal/Genitourinary: Denies any change in bowel or bladder habits. Physical Exam Exam Exam: Physical Exam - General: The patient ambulates with a single point cane. - Back: Examination reveals pain localized to the lumbar region. - Hip: Left hip rotation elicits some discomfort. Gait was antalgic on the left. Neurological examination reveals mild weakness of the left hip flexion. Patient demonstrated no upper motor neuron signs. Lumbar extension was restricted. Vital Signs: BMI result Body Mass Index 47.8 Assessment & Plan Assessment & Plan (1) Morbid obesity with BMI of 50.0-59.9, adult: Code(s): E66.01 - Morbid (severe) obesity due to excess calories; Z68.43 - Body mass index [BMI] 50.0-59.9, adult Category: Medical (2) Lumbar radiculitis: Code(s): M54.16 - Radiculopathy, lumbar region Category: Medical (3) Spinal stenosis, lumbar region with neurogenic claudication: Code(s): M48.062 - Spinal stenosis, lumbar region with neurogenic claudication Category: Medical (4) Degenerative joint disease (DJD) of hip: Code(s): M16.9 - Osteoarthritis of hip, unspecified Category: Medical Qualifiers: Osteoarthritis type: primary Laterality: left Qualified Code(s): M16.12 - Unilateral primary osteoarthritis, left hip Plan Pain Management - Affect: The patient can function with the pain, though it can be uncomfortable and painful at times. - Analgesia: Current pain is rated 7/10 while standing. - Activities of Daily Living: The patient ambulates with a single point cane. Plan Patient was informed and verbally consented to the use of an ambient scribe for clinic note documentation during this visit. 1. Lumbar Foraminal Stenosis The patient's symptoms of claudicant back and leg pain correlate with the MRI findings of multi-level lumbar foraminal stenosis, most significantly at the L2- L3 level on the left. The minimal relief from a prior left hip injection makes the lumbar spine the most likely pain generator. Surgery is not recommended at this time. The plan is to proceed with a diagnostic and therapeutic left L2-L3 transforaminal epidural steroid injection to target the irritated nerve. The procedure will be performed in the office, and the patient wishes to schedule it before [place]. 2. Left Hip Osteoarthritis The patient has known arthritis in the left hip, which may be a contributing factor to the patient's pain, although it is considered less likely to be the primary source, given the minimal response to a prior intra-articular injection. The current plan is to observe and focus on treating the lumbar pathology, with re-evaluation of the hip if symptoms persist post-epidural injection. Discussion Notes I reviewed the results of the recent lumbosacral spine MRI with the patient, explaining that the findings of foraminal stenosis, particularly at L2-L3 on the left, correlate well with the patient's symptoms of pain that is worse with standing and improves with sitting. We discussed that while there is also arthritis in the left hip, the lack of significant relief from a prior hip injection makes the back the most likely source of the pain. I presented the options of continued observation versus a left L2-L3 transforaminal epidural steroid injection, noting that surgery is not recommended at this time. I explained that the injection serves both a diagnostic purpose, to confirm the pain generator, and a therapeutic purpose to relieve symptoms. We discussed performing the procedure in the office versus with sedation at the hospital, and the patient consented to an in-office procedure. The patient was informed about potential discomfort during the injection and the possibility of temporary leg numbness post-procedure. The patient agreed to the plan and requested to schedule the injection after the patient's birthday on [birth year]. Risks and benefits of the procedure were discussed with the patient. Potential alternative measures were also discussed. Patient understands that the procedure is completely elective. Potential side effects associated with injectable medications were discussed. All questions were answered to the patient's satisfaction. Patient Instructions - Your recent MRI shows narrowing in the lower back where nerves exit the spine, which is likely causing your back and leg pain. - We plan to perform an injection of numbing medicine and a steroid (cortisone) into this area of your back. - This injection will help confirm the source of your pain and may provide significant pain relief. - The procedure will be performed here in the office. - Our business operations consultant, Macie, will call you to arrange an appointment for the injection. - You have requested to schedule this procedure for a Wednesday after your birthday on [birth year], but before June 02. Coding Level of Care Code Est Pt Level 4 (92210) Complex visit Add On G2211 Diagnoses Morbid obesity with BMI of 50.0-59.9, adult E66.01; Z68.43 Lumbar radiculitis M54.16 Spinal stenosis, lumbar region with neurogenic claudication M48.062 Primary osteoarthritis of left hip M16.12 Osteoarthritis type: primary Laterality: left
--- OUTSIDE RECORDS SUMMARY | 2025-05-09 07:29 | XMS_ITS | Encounter Summary ---
Author Organization [facility] Address [address] [place] [address] Care Team Providers Care Showroom Sales Consultant Name Role Phone Shahid Shen MD Primary Care Provider [phone] Encounter Details Date Type Department Care Team Description 11/14/2020 Cardiac Nurse Practitioner Report Medical Records [address] [place] [address] Tonya Laird Social History Tobacco Use Types [...] on filedocumented in this encounter Care Teams Showroom Sales Consultant Relationship Specialty Start Date End Date Shahid Shen MD [address] [place] [address] [phone] PCP - General Internal Medicine 08/14/13 documented as of this encounter
--- OUTSIDE RECORDS SUMMARY | 2025-05-09 07:29 | XMS_ITS | Encounter Summary ---
Author Organization [employer] [place] [address] Care Team Providers Care Chipping Machine Operator Name Role Phone Shahid Shen MD Primary Care Provider [phone] Encounter Details Date Type Department Care Team (Late st Contact Info) Description 08/28/2024 Lab Requisition [facility] - Main Lab [address] [facility] [place] [address] Jhonny Quijano MD [address] [facility] [address] [place] [address] Benign essential microscopic hematuria Social History Tobacco Use Types Packs/Day Years Used Date Smoking Tobacco: Never Smokeless Tobacco: Never Alcohol Use Standard Drinks/Week Comments Never 0 [...] for your loved ones. For example, children's lunchroom supervisor or elderly care for an older adult? [...] Date Recorded What is your living situation? 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 Not on file Not on file Not on file documented as of this encounter Plan of Treatment Upcoming Encounters Date Type Department Care Team (Late st Contact Info) Description 08/16/2025 3:00 PM EST Consult Bariatric Surgery - [address] [place] [address] Emerson Reno MD [address] [place] [phone] documented as of this encounter Procedures Procedure Name Priority Date/Time Associated Diagnosis Comments AP OUTSIDE CONSULT Routine 08/23/2024 12 :00 AM EDT Benign essential microscopic hematuria documented in this encounter Results * Anatomic pathology outside consult (08/23/2024 12:00 AM EDT) Final Diagnosis A. Urine, Voided, ([id number]): Negative for high grade urothelial carcinoma. Acute inflammation present. Results of UroVysion fluorescence in situ hybridization (FISH) testing: Although FISH was performed, insufficient non-obscured hybridization signals are present for evaluation and interpretation. 09/04/2024 4:21 PM EDT [facility] Clinical Information Benign essential microscopic hematuria R31.1 Urine Cytology/FISH (now) 09/04/2024 4:21 PM EDT [facility] Gross Description A. Urine, Voided, ([id number]): Received one ThinPrep slide for cytology and one ThinPrep slide for UroVysion FISH 09/04/2024 4:21 PM EDT [facility] Disclaimer Unless otherwise specified, all tissue is 10% NB formalin fixed and paraffin embedded. Technical pathology services provided by [facility] at [address], [place] [address] (CLIA #[id number]/Yvonne Villaseñor MD, Plant Operator/Shift Supervisor) 09/04/2024 4:21 PM EDT [facility] Tissue Urine specimen from urethra / Unknown 08/23/2024 08/28/2024 10:28 AM EDT us Jhonny Quijano MD LAB PATHOLOGY ORDERABLES Final R esult [facility] [address] [place] [address], documented in this encounter Visit Diagnoses Diagnosis Benign essential microscopic hematuria documented in this encounter Additional Health Concerns Assessment Noted Time PHQ-9 Depression Total Score: 3 08/18/19 25 1:43 PM EST documented as of this encounter Care Teams Chipping Machine Operator Relationship Specialty Start Date End Date Shahid Shen MD [address] [place] [phone] PCP - General Internal Medicine 12/22/05 documented as of this encounter
--- OUTSIDE RECORDS SUMMARY | 2025-05-09 07:29 | XMS_ITS | Encounter Summary ---
Author Organization [facility] Address [address] [place] [address] Care Team Providers Care Qualitative Field Coordinator Name Role Phone Shahid Shen MD Primary Care Provider [phone] Encounter Details Date Type Department Care Team Description 07/14/2023 Hospital Medical Records [address] [place] [id number] [facility] Social History Tobacco Use Types Packs/Day Years [...] on filedocumented in this encounter Care Teams Qualitative Field Coordinator Relationship Specialty Start Date End Date Shahid Shen MD [address] [place] [address] [phone] PCP - General Internal Medicine 08/14/13 documented as of this encounter
--- OUTSIDE RECORDS SUMMARY | 2025-05-09 07:29 | XMS_ITS | Encounter Summary ---
Author Organization [facility] Address [address] [place] [address] Care Team Providers Care Sewage Disposal Worker Name Role Phone Shahid Shen MD Primary Care Provider [phone] Reason for Visit * Reason Onset Date Comments refill request 05/18/2022 ALBUTEROL SULFAT E (ProAir HFA) 108 (90 Base) MCG/ACT Aero Soln Encounter Details Date Type Department Care Team Description 05/18/2022 Refill Adult Medicine [address] [id number] Shahid Shen MD [address] [place] [phone] refill request (ALBUTEROL SULFATE (ProAir HFA) 108 [...] $20 CHEMA 1500 / Product Type: HMO [id number] ?? documented in this encounter Plan of Treatment Not on file documented as of this encounter Visit Diagnoses Not on filedocumented in this encounter Care Teams Sewage Disposal Worker Relationship Specialty Start Date End Date Shahid Shen MD [address] [place] [phone] PCP - General Internal Medicine 08/14/13 documented as of this encounter
--- OUTSIDE RECORDS SUMMARY | 2025-05-09 07:29 | XMS_ITS | Clinical Summary ---
Author Organization [address] Address [address] [place] [phone] Phone Care Team Providers Care Senior Procurement Manager Name Role Phone Shahid Shen MD Primary Care Provider [phone] Allergies No known active allergies Medications ascorbic acid (VITAMIN C) 1,000 mg tablet Take 1 tablet (1,000 mg total) by mouth 1 (one) time each day. Active budesonide (Pulmicort Flexhaler) 90 mcg/actuation inhaler Inhale 1 puff by mouth 2 (two) times a day. 4 Active fluticasone propionate (FLONASE) 50 mcg/actuation nasal spray APPLY ONE SPRAY IN THE AFFECTED NOSTRIL EVERY DAY 3 Active naphazoline-phe niramine (Naphcon-A) 0.025-0.3 % ophthalmic solution PLACE ONE DROP INTO BOTH EYE(S) FOUR TIMES DAILY 3 Active multivitamin (MULTIPLE VITAMINS ORAL) Take by mouth. Active diclofenac (Cataflam) 50 mg tablet Take [...] 1 as needed. 4 tablet 5 Active amLODIPine (NORVASC) 10 mg tablet TAKE ONE TABLET BY MOUTH EVERY DAY 90 tablet 1 5 Active clotrimazole-be tamethasone (LOTRISONE) 1-0.05 % cream APPLY TOPICALLY TO THE AFFECTED AREA ONCE A DAY 30 g 4 5 Active albuterol HFA (PROAIR HFA ; PROVENTIL HFA ; VENTOLIN HFA) 90 mcg/actuation inhaler INHALE TWO PUFFS BY MOUTH EVERY 4 HOURS NEEDED FOR COUGH OR WHEEZING 18 g 5 Active fluticasone HFA (Flovent HFA) 110 mcg/actuation inhaler Inhale 2 puffs by mouth 2 (two) times a day. 1 each 1 5 Active spironolactone- hydroCHLOROthia zide (ALDACTAZIDE) 25-25 mg per tablet Take 1 tablet (25 mg total) by mouth 1 (one) time each day in the morning. 90 tablet 1 5 Active lisinopril (PRINIVIL,ZESTR IL) 40 mg tablet Take 1 tablet (40 mg total) by mouth 1 (one) time each day. 90 tablet 1 5 Active Active Problems Problem Noted Date Diagnosed Date Pre-diabetes 05/02/2018 Morbid obesity ([facility] V24, [facility] V28) 2013 Allergic rhinitis 10/20/2007 Asthma 04/22/2006 Essential hypertension, benign 04/22/2006 Encounters Date Type Department Care Team Description 04/14/2025 11:58 AM EDT - 04/14/2025 11:59 PM EDT Hospital Encounter [facility] MRI [address] [place] [id number] Radiculopathy; Spinal stenosis Discharge Disposition: Home or Self Care 02/07/2025 8:00 AM EDT Office Visit Adult Medicine [address] [address] Lora Castillo PA Hyperlipidemia, unspecified hyperlipidemia type (Primary Dx); Pre-diabetes; Essential hypertension, benign; Chronic bilateral low back pain, unspecified whether sciatica present from Last 3 Months Immunizations Immunization Administration Dates Next Due Hepatitis B (Zpuvktk-X-Tykse , Recombivax HB-Adult) 19yo and older 11/23/2003 [...] Unspecified asthma(493.90) DX:Un specified asthma(493.90) Morbid obesity (CMS/HCC V24, CMS/HCC V28) 08/14/2013 DX:Morbid obesity (HCC) Social History Tobacco Use Types Packs/Day Years [...] for your loved ones. For example, children's institution attendant or elderly care for an older adult? [...] Sign Reading Time Taken Comments Blood Pressure 118/64 02/07/2025 7:48 AM EDT Pulse 68 02/07/2025 7:48 AM EDT Temperature 35.7 C (96.3 F) 02/07/2025 7:48 AM EDT Respiratory Rate 16 12/22/2024 7:26 AM EDT Oxygen Saturation 96% 02/07/2025 7:48 AM EDT Inhaled Oxygen Concentration - - Weight 146 kg (322 lb 6.4 oz) 02/07/2025 7:48 AM EDT Height 167.6 cm (5' 5.98 ) 02/07/2025 7:48 AM ED T Body Mass Index 52.06 02/07/2025 7:48 AM EDT Plan of Treatment Upcoming Encounters Date Type Department Care Team (Late st Contact Info) Description 08/16/2025 3:00 PM EST Consult Bariatric Surgery - [address] [place] [address] Emerson Reno MD [address] [place] [phone] Health Maintenance Due Date Last Done Comments Hepatitis B Vaccines (2 of 3 - 19+ 3-dose series) 12/21/2003 11/23/2003, 11/23/2003 RSV Immunization Adult Patients (1 - Risk 50-74 years 1-dose series) 2017 Zoster Vaccines (1 of 2) 2017 Pneumococcal Vaccine: 50+ Years (2 of 2 - PCV) 08/14/2017 08/14/2016 HIV Screening 05/23/2022 COVID-19 Vaccine ( season) 2025 04/20/2022, 09/28/2020, 08/28/2020 Influenza Vaccine (#1) 2025 , 02/18/2023, 04/20/2022, Additional history exists Social Influencers of Health Screening 08/17/2025 08/17/2024 Hypertension/CHF/CAD Annual BMP Blood Test 02/07/2026 02/07/2025, 08/24/2024, 08/12/2023 DTaP,Tdap,and Td Vaccines (3 - Td or Tdap) 08/14/2026 08/14/2016, 11/23/2003 Colorectal Cancer Screening: Colonoscopy 08/26/2026 08/26/2021, 08/26/2021 Cholesterol Screening (Lipid Panel) 02/07/2030 02/07/2025, 08/24/2024, 09/11/2022, Additional history exists MMR Vaccines Aged Out 09/07/2001 No longer eligi ble based on patient's age to complete this topic Hepatitis C Screening Completed 07/21/2020 Depression Screening Completed 08/17/2024 HIB Vaccines Aged Out No longer eligi [...] age to complete this topic Meningococcal B Vaccine Aged Out No l onger eligible based on patient's age to complete this topic RSV Immunization Patients Under 20 months Aged Out No longer eligible based on patient's age to complete this topic Varicella Vaccines Aged Out No longer eligible based on patient's age to complete this topic Goals Goal Patient Goal Type Associated Problems Recent Progress Patient-Stated? Author STG's 6 visits General Yes Kiet Gomes, PT Note: Pt is Independent and compliant with initial HEP. Pt will perform correct technique for sup<->sit transfers w/ min VC's in 5/5 trials. Pt will demonstrate 1/2 grade or better increase in B LE strength deficits to increase tolerance to walking. Pt will transfers sit to stand w/ min A of 1 UE or less. LTG's 12 visits General Yes Kiet Gomes, PT Note: Pt will be Independent and compliant with final HEP. Pt will I demonstrate proper technique for sup<->sit transfers in 5/5 trials. Pt will demonstrate B LE strength of 4-/5 to increase tolerance to walking. Pt will transfers sit to stand w/ A of 1 UE for safety only. Procedures Procedure Name Priority Date/Time Associated Diagnosis Comments MR LUMBAR SPINE WO CONTRAST Routine 04/14/2025 1:20 PM EDT Radiculopathy Spinal stenosis HEMOGLOBIN A1C Routine 02/07/2025 8:29 AM EDT Pre-diabetes LIPID PANEL WITH REFLEX TO DIRECT LDL Routine 02/07/2025 8:29 AM EDT Hyperlipidemia, unspecified hyperlipidemia type BASIC METABOLIC PANEL Routine 02/07/2025 8:29 AM EDT Essential hypertension, benign COLONOSCOPY Routine 08/26/2021 HEPATITIS C SCREENING Routine 07/21/2020 from Last 3 Months or Most Recently Relevant to Health Maintenance Results * MR Lumbar Spine wo Contrast (04/14/2025 1:20 PM EDT) Anatomical Region Laterality Modality L-spine, Spine Magnetic Resonan ce 04/16/2025 3:02 AM EST Impressions 04/16/2025 3:10 AM EST Multilevel lumbar spondylosis, most significant at L2-L3, L3-L4 and L4-L5. -------- FINAL REPORT -------- Dictated By: Bia Amaral Dictated Date: 04/16/2025 03:02 ET Assigned Physician: Bia Amaral Reviewed and Electronically Signed By: Bia Amaral Signed Date: 04/16/2025 03:10 ET Workstation ID: [id number] Transcribed By: Self Edit Transcribed Date: 04/16/2025 03:02 ET Narrative 04/16/2025 3:10 AM EST INDICATION: Radiculopathy, spinal stenosis . Low back pain with left hip pain and numbness. COMPARISON: None TECHNIQUE: Multiplanar, multisequence MRI was performed of the lumbar spine without IV contrast. FINDINGS: Study assumes 5 lumbar type vertebral bodies. Vertebral body heights and alignment are preserved. Conus terminates at T12. Bone marrow and cord signal is unremarkable. Multilevel anterior marginal osteophytes. Disc desiccation at L4-L5. Specific findings are seen at the following levels: T12-L1:Mild diffuse disc bulge with short pedicles and facet arthropathy which effaces the ventral thecal sac without significant spinal canal stenosis. Mild to moderate left neural foraminal narrowing. L1-L2:Diffuse disc bulge with facet arthropathy and short pedicles which effaces the ventral thecal sac without significant spinal canal stenosis. Moderate left and mild right neural foraminal narrowing. L2-L3:Diffuse disc bulge with ligamentum flavum infolding, facet arthropathy and short pedicles which effaces the ventral thecal sac without significant spinal canal stenosis. Moderate to severe left and moderate right neural foraminal narrowing. L3-L4:Diffuse disc bulge with ligamentum flavum infolding and facet arthropathy and short pedicles which effaces the ventral thecal sac and results in mild to moderate spinal canal stenosis with moderate to severe right and moderate left neural foraminal narrowing. Probable annular fissure. L4-L5:Diffuse disc bulge with posterior osteophyte formation with facet arthropathy and short pedicles which effaces the ventral thecal sac and results in mild spinal canal stenosis with moderate bilateral neural foraminal narrowing L5-S1:Facet arthropathy. No significant spinal canal stenosis or neural foraminal narrowing. Miscellaneous: T2 hyperintense lesion in the right kidney statistically representing a cyst. Procedure Note Bia Amaral MD - 04/16/2025 INDICATION: Radiculopathy, spinal stenosis . Low back pain with left hippain and numbness. COMPARISON: None TECHNIQUE: Multiplanar, multisequence MRI was performed of the lumbarspine without IV contrast. FINDINGS: Study assumes 5 lumbar type vertebral bodies. Vertebral body heights andalignment are preserved. Conus terminates at T12. Bone marrow and cordsignal is unremarkable. Multilevel anterior marginal osteophytes. Discdesiccation at L4-L5. Specific findings are seen at the followinglevels: T12-L1:Mild diffuse disc bulge with short pedicles and facet arthropathywhich effaces the ventral thecal sac without significant spinal canalstenosis. Mild to moderate left neural foraminal narrowing. L1-L2:Diffuse disc bulge with facet arthropathy and short pedicles whicheffaces the ventral thecal sac without significant spinal canal stenosis.Moderate left and mild right neural foraminal narrowing. L2-L3:Diffuse disc bulge with ligamentum flavum infolding, facetarthropathy and short pedicles which effaces the ventral thecal sacwithout significant spinal canal stenosis. Moderate to severe left andmoderate right neural foraminal narrowing. L3-L4:Diffuse disc bulge with ligamentum flavum infolding and facetarthropathy and short pedicles which effaces the ventral thecal sac andresults in mild to moderate spinal canal stenosis with moderate to severeright and moderate left neural foraminal narrowing. Probable annularfissure. L4-L5:Diffuse disc bulge with posterior osteophyte formation with facetarthropathy and short pedicles which effaces the ventral thecal sac andresults in mild spinal canal stenosis with moderate bilateral neuralforaminal narrowing L5-S1:Facet arthropathy. No significant spinal canal stenosis or neuralforaminal narrowing. Miscellaneous: T2 hyperintense lesion in the right kidney statisticallyrepresenting a cyst. IMPRESSION: Multilevel lumbar spondylosis, most significant at L2-L3, L3-L4 andL4-L5. -------- FINAL REPORT -------- Dictated By: Bia Amaral Dictated Date: 04/16/2025 03:02 ET Assigned Physician: Bia Amaral Reviewed and Electronically Signed By: Bia Amaral Signed Date: 04/16/2025 03:10 ET Workstation ID: [id number] Transcribed By: Self Edit Transcribed Date: 04/16/2025 03:02 ET Darek John DO IMG MRI PROCEDURES Final Result * (ABNORMAL) Lipid panel with reflex to direct LDL (02/07/2025 8:29 AM EDT) Cholesterol 151 0 - 200 mg/dL LAB CHEMISTRY METHOD 02/07/2025 11:12 AM EDT [facility] Triglycerides 129 0 - 150 mg/dL LAB CHEMISTRY METHOD 02/07/2025 11:12 AM EDT [facility] HDL 34(L) >=40 mg/dL LAB CHEMISTRY METHOD 02/07/2025 11:12 AM EDT [facility] LDL Calculated 91 0 - 100 mg/dL LAB CHEMISTRY METHOD 02/07/2025 11:12 AM [facility] Comment:Estimated LDL Calcul ated using equation: Total cholesterol - HDL cholesterol - (Triglycerides/5) VLDL Cholesterol Carlos A 25.8 mg/dL LAB CHEMISTRY METHOD 02/07/2025 11:12 AM [facility] Non HDL Chol. (LDL+VLDL) 117 <145 mg/dL LAB CHEMISTRY METHOD 02/07/2025 11:12 AM [facility] Chol/HDL Ratio 4.4 0.0 - 4.4 LAB CHEMISTRY METHOD 02/07/2025 11:12 AM [facility] Blood Venous blood specimen / Unknown Venipuncture / Unknown 02/07/2025 8:29 AM EDT 02/07/2025 8:29 AM EDT Lora MARINELLI LAB BLOOD ORDERABLES Fi nal Result [facility] [address] [place] [address], * Hemoglobin A1c (02/07/2025 8:29 AM EDT) [facility] Hemoglobin A1C 6.0 <6.5 % LAB CHEMISTRY METHOD 02/07/2025 1:42 PM EDT [facility] Mean Bld Glu Estim. 126 mg/dL LAB CHEMISTRY METHOD 02/07/2025 1:42 PM EDT [facility] Blood Venous blood specimen / Unknown Venipuncture / Unknown 02/07/2025 8:29 AM EDT 02/07/2025 8:29 AM EDT Lora MARINELLI LAB BLOOD ORDERABLES Fi nal Result [facility] [address] [place] [address], * (ABNORMAL) Basic metabolic panel (02/07/2025 8:29 AM EDT) Sodium 137 133 - 145 mmol/L LAB CHEMISTRY METHOD 02/07/2025 11:06 AM [facility] Potassium 4.3 3.5 - 5.5 mmol/L LAB CHEMISTRY METHOD 02/07/2025 11:06 AM [facility] Chloride 102 96 - 110 mmol/L LAB CHEMISTRY METHOD 02/07/2025 11:06 AM [facility] CO2 30 21 - 32 mmol/L LAB CHEMISTRY METHOD 02/07/2025 11:06 AM [facility] Anion Gap 5 3 - 11 LAB CHEMISTRY METHOD 02/07/2025 11:06 AM [facility] Glucose 111(H) 70 - 100 mg/dL LAB CHEMISTRY METHOD 02/07/2025 11:06 AM [facility] BUN 19 5 - 25 mg/dL LAB CHEMISTRY METHOD 02/07/2025 11:06 AM [facility] Creatinine 0.75 0.70 - 1.30 mg/dL LAB CHEMISTRY METHOD 02/07/2025 11:06 AM [facility] eGFR 105 >=60 mL/min/1. 73m2 LAB CHEMISTRY METHOD 02/07/2025 11:06 AM [facility] Comment:Calculation based on the Chronic Kidney Disease Epidemiology Collaboration (CKD-EPI) equation refit without adjustment for race. BUN/Creatinine Ratio 25.3 LAB CHEMISTRY METHOD 02/07/2025 11:06 AM EDT [facility] Calcium 9.3 8.5 - 10.5 mg/dL LAB CHEMISTRY METHOD 02/07/2025 11:06 AM EDT [facility] Blood Venous blood specimen / Unknown Venipuncture / Unknown 02/07/2025 8:29 AM EDT 02/07/2025 8:29 AM EDT Lora MARINELLI LAB BLOOD ORDERABLES Fi nal Result [facility] [address] [place] [address], * Colonoscopy (08/26/2021) Colonoscopy abstracted, no interpretation Anatomical Region Laterality Modality Other Historical Provider HEALTH MAINTENANCE Final Result * Hepatitis C Screening (07/21/2020) Hepatitis C Screening abstracted Historical Provider HEALTH MAINTENANCE Final Result from Last 3 Months or Most Recently Relevant to Health Maintenance Insurance [facility] Care Teams Senior Procurement Manager Relationship Specialty Start Date End Date Shahid Shen MD [address] [place] [address] [place] [phone] PCP - General Internal Medicine 12/22/05
--- OUTSIDE RECORDS SUMMARY | 2025-05-09 07:29 | XMS_ITS | Encounter Summary ---
Author Organization [place] [address] Care Team Providers Care Heel Seat Sander Name Role Phone Shahid Shen MD Primary Care Provider [phone] Encounter Details Date Type Department Care Team (Late st Contact Info) Description 10/17/2024 Lab Requisition [facility] Lab [address] [facility] [place] [address] Jhonny Quijano MD [address] [facility] [address] [place] [address] Urinary tract infection, site not specified; Acute cystitis without hematuria Social History Tobacco Use Types Packs/Day [...] for your loved ones. For example, child advocate or elderly care for an older adult? [...] 3:00 PM EST Consult Bariatric Surgery - [address] [place] [address] Emerson Reno MD [address] [place] [phone] documented as of this encounter Goals Goal Patient Goal Type Associated Problems Recent Progress Patient-Stated? Author STG's 6 visits General Yes Kiet Gomes PT Note: Pt is Independent and compliant with initial HEP. Pt will perform correct technique for sup<->sit transfers w/ min VC's in 5/5 trials. Pt will demonstrate 1/2 grade or better increase in B LE strength deficits to increase tolerance to walking. Pt will transfers sit to stand w/ min A of 1 UE or less. LTG's 12 visits General Yes Kiet Gomes PT Note: Pt will be Independent and compliant with final HEP. Pt will I demonstrate proper technique for sup<->sit transfers in 5/5 trials. Pt will demonstrate B LE strength of 4-/5 to increase tolerance to walking. Pt will transfers sit to stand w/ A of 1 UE for safety only. documented as of this encounter Procedures Procedure Name Priority Date/Time Associated Diagnosis Comments CULTURE URINE Routine 10/17/2024 11:00 AM EDT Urinary tract infection, site not specified Acute cystitis without hematuria documented in this encounter Results * (ABNORMAL) Culture urine (10/17/2024 11:00 AM EDT) Culture, Urine >100,000 CFU/mL Klebsiella pneumoniae ssp pneumoniae(A) JEM 10/20/2024 8:[address] [facility] Comment: This is an edited result. Previous organism was Gram negative bacilli on 10/19/2024 at 0822 EDT. Urine Urine specimen obtained by clean catch procedure / Unknown 10/17/2024 11:00 AM EDT 10/17/2024 2:43 PM EDT Narrative Organism Antibiotic Method Susceptibility Klebsiella pneumoniae ssp pneumoniae Amoxicillin/Clavulanate JEM <=2 ug/ml: Susceptible Klebsiella pneumoniae ssp pneumoniae Ampicillin/Sulbactam JEM 4 ug/ml: Susceptible Klebsiella pneumoniae ssp pneumoniae Piperacillin/Tazobactam JEM <=4 ug/ml: Susceptible Klebsiella pneumoniae ssp pneumoniae Cefazolin (Urine) JEM 2 ug/ml: Susceptible Klebsiella pneumoniae ssp pneumoniae Cefoxitin JEM <=4 ug/ml: Susceptible Klebsiella pneumoniae ssp pneumoniae Ceftazidime JEM <=0.5 ug/ml: Susceptible Klebsiella pneumoniae ssp pneumoniae Ceftriaxone JEM <=0.25 ug/ml: Susceptible Klebsiella pneumoniae ssp pneumoniae Cefepime JEM <=0.12 ug/ml: Susceptible Klebsiella pneumoniae ssp pneumoniae Meropenem JEM <=0.25 ug/ml: Susceptible Klebsiella pneumoniae ssp pneumoniae Amikacin JEM <=1 ug/ml: Susceptible Klebsiella pneumoniae ssp pneumoniae Gentamicin JEM <=1 ug/ml: Susceptible Klebsiella pneumoniae ssp pneumoniae Ciprofloxacin JEM <=0.06 ug/ml: Susceptible Klebsiella pneumoniae ssp pneumoniae Levofloxacin JEM <=0.12 ug/ml: Susceptible Klebsiella pneumoniae ssp pneumoniae Nitrofurantoin JEM 64 ug/ml: Intermediate Klebsiella pneumoniae ssp pneumoniae Trimethoprim/Sulfamethoxazo le JEM <=20 ug/ml: Susceptible us Jhonny Quijano MD LAB MICROBIOLOGY - GENERAL ORDER JUSTINO Final Result [facility] [address] [place] [address], documented in this encounter Visit Diagnoses Diagnosis Urinary tract infection, site not specified Acute cystitis without hematuria documented in this encounter Additional Health Concerns Assessment Noted Time PHQ-9 Depression Total Score: 3 08/18/19 25 1:43 PM EST documented as of this encounter Care Teams Heel Seat Sander Relationship Specialty Start Date End Date Shahid Shen MD [address] [place] [address] PCP - General Internal Medicine 12/22/05 documented as of this encounter
--- OUTSIDE RECORDS SUMMARY | 2025-05-09 07:29 | XMS_ITS | Encounter Summary ---
Author Organization [facility] Address [address] [place] [address] Care Team Providers Care Engineer Technician Name Role Phone Community, Pcp Primary Care Provider Italia Maradiaga MD Primary Care Provider Shahid Kim MD Primary Care Provider [phone] Encounter Details Date Type Department Care Team Description 01/13/2011 Refill Adult Medicine [facility] [address] [place] [phone] Shahid Shen MD [address] [place] [phone] Social History Tobacco Use Types Packs/Day Years [...] on filedocumented in this encounter Care Teams Engineer Technician Relationship Specialty Start Date End Date Community, Pcp PCP - General 06/26/10 08/03/13 Italia Maher MD PCP - General Internal Medicine 08/04/13 08/13/13 Shahid Shen MD [address] [place] [phone] PCP - General Internal Medicine 08/14/13 documented as of this encounter
--- OUTSIDE RECORDS SUMMARY | 2025-05-09 07:29 | XMS_ITS | Encounter Summary ---
Author Organization [facility] Address [address] [place] [address] Care Team Providers Care Cephalometric Technician Name Role Phone Shahid Shen MD Primary Care Provider [phone] Encounter Details Date Type Department Care Team Description 08/29/2018 Orders Only Medical Records [address] [place] [address] Mitch Bingham MD [address] [place] [address] Social History Tobacco Use Types Packs/Day [...] on filedocumented in this encounter Care Teams Cephalometric Technician Relationship Specialty Start Date End Date Shahid Shen MD [address] [place] [address] PCP - General Internal Medicine 08/14/13 documented as of this encounter
--- OUTSIDE RECORDS SUMMARY | 2025-05-09 07:29 | XMS_ITS | Encounter Summary ---
Author Organization [facility] Address [address] [place] [address] Care Team Providers Care Eeo Officer Name Role Phone Shahid Shen MD Primary Care Provider [phone] Reason for Visit * Reason Comments E-prescribe Rx Request Encounter Details Date Type Department Care Team Description 08/13/2021 Refill Adult Medicine [address] [id number] Priti Bright PA E-prescribe Rx Request Social [...] have Coronavirus / COVID-19? No / Unsure 07/15/2021 1:51 PM EST documented as of this encounter Miscellaneous Notes * Telephone Encounter - Jolly Tobias - 08/14/2021 9:42 AM EST Rickie 07/15/21 Lab Results Component Value Date NA 139 04/14/2021 K 4.0 04/14/2021 CO2 27 04/14/2021 CL 104 04/14/2021 BUN 22 04/14/2021 CREAT 0.77 04/14/2021 GLU 106 04/14/2021 CA 9.2 04/14/2021 GFR > 60 04/14/2021 * Telephone Encounter - Michelle Nunez - 08/14/2021 7:32 AM EST Patient would like script to be: E-PRESCRIBED/FAXED TO PHARMACY WHEN WAS THE PATIENT'S LAST APPOINTMENT IN ADULT MEDICINE? 07/15/2021 WHEN WAS THE LAST TIME THE PATIENT SAW THEIR PCP? 01/28/2021 Does patient have an upcoming appointment? No-patient refused appointment, will call back to book appointment (THE MEDICATION REQUESTED IS ON THE MED [...] N/A Patients current insurance carrier is: Payor: [employer] / Plan: HMO $20 CHASE 1500 / Product Type: HMO [id number] documented in this encounter Plan of Treatment Not on file documented as of this encounter Visit Diagnoses Not on filedocumented in this encounter Care Teams Eeo Officer Relationship Specialty Start Date End Date Shahid Shen MD [address] [place] [address] PCP - General Internal Medicine 08/14/13 documented as of this encounter
--- OUTSIDE RECORDS SUMMARY | 2025-05-09 07:29 | XMS_ITS | Encounter Summary ---
Author Organization [facility] Address [address] [place] [address] Care Team Providers Care Industrial Maintenance Technician Name Role Phone Shahid Shen MD Primary Care Provider [phone] Encounter Details Date Type Department Care Team Description 12/25/2016 Night Triage Doc Medical Records [address] [place] [address] Abstract, Provider Social History Tobacco Use Types Packs/Day Years [...] on filedocumented in this encounter Care Teams Industrial Maintenance Technician Relationship Specialty Start Date End Date Shahid Shen MD [address] [place], [place] [phone] PCP - General Internal Medicine 08/14/13 documented as of this encounter
--- OUTSIDE RECORDS SUMMARY | 2025-05-09 07:29 | XMS_ITS | Encounter Summary ---
Author Organization [facility] Address [address] [place] [address] Care Team Providers Care Business Law Professor Name Role Phone Shahid Shen MD Primary Care Provider [phone] Reason for Visit * Reason Onset Date Comments APPOINTMENT 07/19/2018 Encounter Details Date Type Department Care Team Description 07/19/2018 Telephone Gastroenterology - [address] [place] [address] [place] [address] Mitch Bingham MD [address] [place] [address] [phone] APPOINTMENT Social History Tobacco Use Types Packs/Day Years [...] encounter Miscellaneous Notes * Telephone Encounter - Antonella Hopkins - 07/20/2018 2:15 PM EST Lvm for pt requesting a call back to schedule procedure * Telephone Encounter - [place] - 07/19/2018 10:22 AM EST Patient calling to schedule a colon w/ Dr. Bingham. Thank you documented in this encounter Plan of Treatment Not on file documented as of this encounter Visit Diagnoses Not on filedocumented in this encounter Care Teams Business Law Professor Relationship Specialty Start Date End Date Shahid Shen MD [address] [place] [address] [phone] PCP - General Internal Medicine 08/14/13 documented as of this encounter
--- OUTSIDE RECORDS SUMMARY | 2025-05-09 07:29 | XMS_ITS | Encounter Summary ---
Author Organization [facility] Address [address] [place] [address] Care Team Providers Care Supervisor Press Room Name Role Phone Shahid Shen MD Primary Care Provider [phone] Encounter Details Date Type Department Care Team Description 07/16/2023 Hospital Medical Records [address] [place] [id number] Aquiles Pierce Social History Tobacco Use Types Packs/Day Years [...] on filedocumented in this encounter Care Teams Supervisor Press Room Relationship Specialty Start Date End Date Shahid Shen MD [address] [place] [address] [phone] PCP - General Internal Medicine 08/14/13 documented as of this encounter
--- OUTSIDE RECORDS SUMMARY | 2025-05-09 07:29 | XMS_ITS | Encounter Summary ---
Author Organization [facility] Address [address] [place] [address] Care Team Providers Care Healthcare Business Analyst Name Role Phone Shahid Shen MD Primary Care Provider [phone] Reason for Visit * Reason Onset Date Comments Error 08/21/2022 Encounter Details Date Type Department Care Team Description 08/21/2022 Refill Adult Medicine [address] [phone] Shahid Shen MD [address] [place] [address] [phone] Error Social History Tobacco Use Types Packs/Day Years [...] on filedocumented in this encounter Care Teams Healthcare Business Analyst Relationship Specialty Start Date End Date Shahid Shen MD [address] [place] [phone] PCP - General Internal Medicine 08/14/13 documented as of this encounter
--- OUTSIDE RECORDS SUMMARY | 2025-05-09 07:29 | XMS_ITS | Encounter Summary ---
Author Organization [facility] Address [address] [place] [address] Care Team Providers Care Regulatory Assistant Name Role Phone Shahid Shen MD Primary Care Provider [phone] Encounter Details Date Type Department Care Team Description 07/02/2023 Telephone Adult Medicine [address] [phone] Shahid Shen MD [address] [place] [address] [phone] Social History Tobacco Use Types Packs/Day Years [...] on filedocumented in this encounter Care Teams Regulatory Assistant Relationship Specialty Start Date End Date Shahid Shen MD [address] [place] [phone] PCP - General Internal Medicine 08/14/13 documented as of this encounter
== END 2025-05-09 07:54 | disposition home or self-care (01) ==
LOC: HO.HPHYS 07:26
PROVIDERS: PCP Internal Medicine; Visit Provider Physical Medicine & Rehabilitation
DX: E66.01 Morbid (severe) obesity due to excess calories (principal); Z68.43 Body mass index [BMI] 50.0-59.9, adult; M54.16 Radiculopathy, lumbar region; M48.062 Spinal stenosis, lumbar region with neurogenic claudication; M16.12 Unilateral primary osteoarthritis, left hip
CPT/HCPCS: 99214; G2211

== ENCOUNTER 2025-05-25 08:09 | Outpatient (REF) | payer OTHER, SELFPAY | END 2025-05-25 08:10 | disposition home or self-care (01) | LOC: HO.HPHYSR 08:09 | PROVIDERS: PCP Internal Medicine; Visit Provider Physical Medicine & Rehabilitation | DX: M54.16 Radiculopathy, lumbar region (principal) | CPT/HCPCS: 64483; J2003; J3301; Q9967 ==

== ENCOUNTER 2025-05-25 08:09 | Outpatient (AMB) | payer OTHER, SELFPAY ==
[2025-05-25 08:20] VITALS: BP 137/80; PULSE 73; TEMP 36.8; BMI 47.8
--- NOTE | 2025-05-25 08:20 | A.PHYSOV ---
Vital Signs 05/25/25 08:20 Height 5 ft 7 in Weight 305 lb BMI 47.8 BP 137/80 Pulse 73 Temp 98.2 F Intake Visit Reasons: Left Lumbar Transforaminal Epidural L2 Intake Note: Patient is a 59 year old male in office today for a left L2 transforaminal epidural injection. Emery Wheel Worker Required: No Allergies Pt states no known allergy to Allergy (Unknown, Uncoded 05/09/25 07:30) none PFSH Medical History (Updated 05/09/25 @ 07:52 by Darek John DO) Degenerative joint disease (DJD) of hip Spinal stenosis, lumbar region with neurogenic claudication Lumbar radiculitis BMI 50.0-59.9, adult Morbid obesity Morbid obesity with BMI of 50.0-59.9, adult Arthritis of right hip Asthma Hypertension Super obesity Surgical History Status post right hip replacement Family History Father No problems noted. Brother No problems noted. Brother No problems noted. Brother No problems noted. Brother No problems noted. Sister No problems noted. Sister No problems noted. Mother No problems noted. 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 Skin over lumbosacral area was prepped and draped in usual sterile manner. Left L2 pedicle was visualized utilizing fluoroscopy. 5 inch 22 gauge spinal needle was introduced percutaneously and advanced towards the pedicle at about 6 o'clock position. Once level of neural foramina was reached, needle placement was verified utilizing 3 cc of Omnipaque contrast solution. Excellent flow through the neural foramina and epidural spread was identified without evidence of vascular uptake. Total volume of 6 cc containing 2 cc of 1% lidocaine, 40 mg of triamcinolone and normal saline solution were injected after negative aspiration for blood and cerebrospinal fluid. Radiation exposure was documented in the chart. Lumbar transforaminal Epidural Steroid Inj- use with FL Gd: 52812 - Single Procedure code (CPT) selection complete Office Meds Kenalog 40 mg/mL suspension for injection Performing Provider: Darek John DO [facility] Administered by: Darek John DO on 05/25/25 08:55 Dose Route Admin Location Dispensed Lot Number Expiration Date [facility] [place] W[facility] Nurse 40 mg epidural 1 mL [id number] [employer] Total Dispensed Waste 1 mL 0 % lidocaine (PF) 10 mg/mL (1 %) injection solution Performing Provider: Darek John DO [facility] Administered by: Darek John DO on 05/25/25 08:55 Dose Route Admin Location Dispensed Lot Number Expiration Date [facility] [place] W[facility] Nurse 50 mg epidural 5 mL [id number] [facility] Total Dispensed Waste 5 mL 0 % Omnipaque 300 300 mg iodine/mL intravenous solution Performing Provider: Darek John DO [facility] Administered by: Darek John DO on 05/25/25 08:55 Dose Route Admin Location Dispensed Lot Number Expiration Date [facility] [place] W[place] Care Nurse 3 mL epidural 10 mL [id number] [employer] [facility] Total Dispensed Waste 10 mL 70 % Assessment & Plan Assessment & Plan (1) Lumbar radiculitis: Code(s): M54.16 - Radiculopathy, lumbar region Category: Medical Plan: Procedure Plan Procedure Orders: Orders FL Gd Lumbar Transforaminal In Today M54.16 - Radiculopathy, lumbar region AMB Lumbar transforaminal Epidural Steroid Injection Today M54.16 - Radiculopathy, lumbar region Coding Level of Care Code Procedure Only Diagnoses Lumbar radiculitis M54.16 CPT Codes Lumbar transforaminal Epidural Steroid I - CPT TRANSFORM: 58769 - Single ([id number])
== END 2025-05-25 08:54 | disposition home or self-care (01) ==
LOC: HO.HPHYS 08:09
PROVIDERS: PCP Internal Medicine; Visit Provider Physical Medicine & Rehabilitation
DX: M54.16 Radiculopathy, lumbar region (principal)
CPT/HCPCS: 64483